=== PATIENT | female | born 1990 ===

== ENCOUNTER 2018-10-19 06:05 | Day surgery (SDC) | payer MEDICARE, MEDICAID ==
[2018-10-13 12:02] VITALS: BMI 39.5
[2018-10-19] MEDS ORDERED: cefTRIAXone 1 gm 1 GM/100 ML BAG IVPB ONE (07:37)
[2018-10-19] MEDS ORDERED: Iohexol 240 (50 ml) ONE (07:37)
[2018-10-19] MEDS ORDERED: Midazolam 2 MG/2 ML VIAL ONE (08:29)
[2018-10-19] MEDS ORDERED: Propofol 10 mg/ml Inj (20 ML) ONE (08:29)
[2018-10-19 08:38] LABS: CALCIUM 8.8 mg/dl (8.6-10.4)
[2018-10-19] MEDS ORDERED: Neostigmine Methylsulfate 3mg/3ml Syringe IV ONE (09:34)
--- NOTE | 2018-10-19 09:47 | PCM.SURG1 ---
Surgeon's Initial Post Op Note - Surgeon's Notes Surgeon: Isabel Zapata [employer] Compliance Analyst: none Type of Anesthesia: General Endo Pre-Operative Diagnosis: R renal calculi Operative Findings: same Post-Operative Diagnosis: same Operation Performed: cysto. R uretero-renoscopy. Laser renolithotripsy. RTG Pyelogram. stone basketing. stent insertion Specimen/Specimens Removed: urine. stone Estimated Blood Loss: EBL {In ML}: 0 Blood Products Given: N/A Post-Op Condition: Good Date of Surgery/Procedure: 10/19/18 Time of Surgery/Procedure: 09:35
[2018-10-19] MEDS: HYDROmorphone 0.5 mg/0.5 ml ISec IVP PRN ×2 (09:54→10:14)
[2018-10-19 11:22] VITALS: RESP 18; O2SAT 96
[2018-10-19 11:51] VITALS: BP 104/62; PULSE 88; TEMP 97.7
--- NOTE | 2018-10-19 12:10 | RAD ---
Date of service: 10/19/2018 PROCEDURE: Intraoperative Fluoroscopy. HISTORY: UROLITHIASIS FINDINGS: Fluoroscopic assistance was provided for retrograde study and stent placement. Please refer to the operative report from Dr. LU CROWS [place]. Total fluoroscopic time (continuous mode) utilized during the procedure 129.0 seconds. Dose report: DLP 3.62 (mGy/m2)
--- NOTE | 2018-10-19 20:27 | OP ---
PROCEDURE DATE: 10/19/2018 PREOPERATIVE DIAGNOSIS: Right renal calculi. POSTOPERATIVE DIAGNOSIS: Right renal calculi. PROCEDURE: Cystoscopy. Right ureteral renoscopy. Laser renal lithotripsy. Right renal stone basketing. Right retrograde pyelogram. Insertion of right ureteral stent. OPERATING SURGEON: Marizol Zapata MD. DESCRIPTION OF PROCEDURE: Procedure as follows. The patient was placed in lithotomy position. General anesthesia had been administered via the tracheal tube. Perioperative antibiotics were administered. The genitalia prepped and draped in a sterile fashion. A 22-Hungarian cystoscope sheath was introduced with obturator. The scant amount of urine within the bladder was sent for bacteriologic examination. The bladder was inspected. The right ureteral stent was identified. The right ureteral orifice was identified. A 0.035-inch guidewire was inserted into the right ureteral orifice and passed up to the level of kidney. A second guidewire was inserted as well. The ureteral stent was grasped using grasping forceps and removed intact. Procedure was performed under fluoroscopic control as well as video endoscopic control. A 7-Hungarian flexible ureteral renoscope was passed over the working wire under fluoroscopic control as well as video endoscopic control up to the level of the kidney. The guidewire was removed. The multiple calyces in the kidney were inspected. The upper pole was first inspected. There were noted to be multiple stones. Some stones were small. Once stone was larger and was fragmented using the holmium laser and the 20-micron fiber. Energy was delivered in the dusting mode. There was excellent fragmentation. Residual small fragments were basketed using the zero tip nitinol basket. First uretero-renoscopy was performed. There were some tiny sand-like particles within the middle pole. These were irrigated free and were too small to basket. Iodinated contrast dye was instilled to delineate the collecting system anatomy. Thereafter, further inspection of the middle pole calyces as well as lower pole calyces were performed. There were a few tiny fragments within the lower pole as well. Attempted basketing was performed. However, these were too small to basket. These were irrigated free. The ureteroscope was removed under direct vision. There was no ureteral lesion or obstruction or mucosal trauma or stone. A 6-Hungarian multilength stent was inserted over the remaining guidewire. Proper stent position was confirmed with fluoroscopy and endoscopy. A distal suture was left to exit from the distal end of the stent per urethra. The cystoscopy confirmed these findings. The bladder was drained. Cystoscope sheath removed. The patient was returned to supine position. The patient tolerated the procedure without complication. Marizol Zapata MD
== END 2018-10-19 11:50 | disposition home or self-care (01) ==
LOC: MERGE 06:05 → C.SDS 06:05
PROVIDERS: ATTEND Urology
DX: N20.0 Calculus of kidney (principal); E11.9 Type 2 diabetes mellitus without complications; Z98.84 Bariatric surgery status
CPT/HCPCS: 36415; 52356; 80048; 82365; 82948; 87086; 87181; 87206; 88300; C1725; C1758; C1769; J0696; J1170; Q9966

== ENCOUNTER 2018-10-23 10:03 | Inpatient (IN) | payer MEDICARE, MEDICAID ==
[2018-10-23 10:13] VITALS: BMI 30.2
[2018-10-23] MEDS ORDERED: Piperacillin/Tazobact 3.375 gm 100 ML IV STA (10:54)
[2018-10-23] MEDS ORDERED: Piperacillin/Tazobact 3.375 gm 100 ML IVPB ONE (11:35)
--- NOTE | 2018-10-23 12:06 | C.PDOC ---
History Of Present Illness 28 year old female with PMHx of kidney stones, diabetes, and renal failure on dialysis referred to the ED by Dr. Isabel Zapata for evaluation and possible admission. Patient complains of pelvic and flank pain, fever, and nausea status post kidney stent placement on 10/19. As per Dr. Isabel Zapata, urine culture growth show resistance to most of PO medications. Patient goes to dialysis Friday, Friday, and Friday - completed dialysis today. Manager [place]: Dr. Barboza Time Seen by Provider: 10/23/18 10:40 Chief Complaint (Nursing): Abdominal Pain History Per: Patient History/Exam Limitations: no limitations Onset/Duration Of Symptoms: Days Current Symptoms Are (Timing): Still Present Reports Recently: Treated By A Physician Past Medical History Reviewed: Historical Data, Nursing Documentation, Vital Signs Vital Signs: Last Vital Signs Temp 98.5 F 10/23/18 10:22 Pulse 88 10/23/18 10:22 Resp 18 10/23/18 10:22 BP 116/84 10/23/18 10:22 Pulse Ox 95 10/23/18 10:22 - Medical History PMH: Anemia, Diabetes, Fractures (RIGHT FEMUR), HTN, Hypercholesterolemia, Peripheral Edema (not at present), Chronic Kidney Disease Surgical History: Tonsillectomy - [facility] Procedures OTHER ENDOSCOPY OF SM INTEST (03/11/14) Family History: States: No Known Family Hx - Social History Hx Tobacco Use: No Hx Alcohol Use: No Hx Substance Use: No - Immunization History Hx Tetanus Toxoid Vaccination: No Hx Influenza Vaccination: Yes Hx Pneumococcal Vaccination: Yes Review Of Systems Except As Marked, All Systems Reviewed And Found Negative. Constitutional: Positive for: Fever Gastrointestinal: Positive for: Nausea. Negative for: Vomiting, Abdominal Pain, Diarrhea Genitourinary: Negative for: Dysuria, Hematuria, Vaginal Bleeding Physical Exam - Physical Exam Appears: Non-toxic, No Acute Distress Skin: Warm, Dry, No Rash Head: Normacephalic Eye(s): bilateral: Normal Inspection Nose: Normal Oral Mucosa: Moist Neck: Supple Chest: Symmetrical Cardiovascular: Rhythm Regular Respiratory: Normal Breath Sounds, No Rales, No Rhonchi, No Wheezing Neurological/Psych: Oriented x3, Normal Speech Gait: Steady ED Course And Treatment - Laboratory Results Result Diagrams: 10/23/18 12:31 10/23/18 12:31 O2 Sat by Pulse Oximetry: 95 (RA) Pulse Ox Interpretation: Normal Progress Note: Blood and urine collected and sent to the lab for analysis. Blood and urine cultures obtained. Spoke with PMD Dr. Stapleton who requested patient to be admitted under Dr. Myles Gilliam's service. Spoke with Dr. Myles Gilliam. Accepts patient. Disposition - Disposition Disposition: HOSPITALIZED Disposition Time: 13:13 Condition: FAIR - Clinical Impression Clinical Impression: UTI due to extended-spectrum beta lactamase (ESBL) producing Escherichia coli, ESRD (end stage renal disease) on dialysis - PA / CERTIFIED PROSTHETIST/ORTHOTIST / Resident Statement MD/DO has reviewed & agrees with the documentation as recorded. - Scribe Statement The provider has reviewed the documentation as recorded by the Scribe Chante Lyon All medical record entries made by the Scribe were at my direction and pe rsonally dictated by me. I have reviewed the chart and agree that the record accurately reflects my personal performance of the history, physical exam, medical decision making, and the department course for this patient. I have also personally directed, reviewed, and agree with the discharge instructions and disposition. Decision To Admit - Pt Status Changed To: Hospital Disposition Of: Inpatient - Admit Certification Admit to Inpatient:: After my assessment, the patient will require hospitalization for at least two midnights. This is because of the severity of symptoms shown, intensity of services needed, and/or the medical risk in this patient being treated as an outpatient. - InPatient: Physician Admission Certification: I certify that this patient requires 2 or more midnights of care for the following reason:: needs IV antoibiotics - . Bed Request Type: Regular Admitting Physician: Slava Gilliam Patient Diagnosis: UTI due to extended-spectrum beta lactamase (ESBL) producing Escherichia coli, ESRD (end stage renal disease) on dialysis
[2018-10-23 12:35] LABS: BASO # 0.1 K/uL (0.0-0.2); BASO % 0.9 % (0.0-2.0); EOS # 0.1 K/uL (0.0-0.7); EOS % 0.5 % (0.0-4.0); HEMOGLOBIN 10.6 g/dL (11.0-16.0); LYMPH # 0.9 K/uL (1.0-4.3); LYMPH % 8.6 % (20.0-40.0); MEAN CELL VOLUME 89.1 fL (81.0-99.0); MEAN CORPUSCULAR HEMOGLOBIN 28.3 pg (27.0-31.0); MEAN CORPUSCULAR HGB CONC 31.8 g/dL (33.0-37.0); MEAN PLATELET VOLUME 10.6 fL (7.2-11.7); MONO # 1.1 K/uL (0.0-0.8); MONO % 10.1 % (0.0-10.0); NEUT # 8.8 K/uL (1.8-7.0); NEUT % 79.9 % (50.0-75.0); NRBC % 0.1 % (0.0-2.0); PLATELET COUNT 234 K/uL (130-400); RBC 3.75 Mil/uL (3.80-5.20); RED CELL DISTRIBUTION WIDTH 16.3 % (11.5-14.5)
[2018-10-23 12:47] LABS: ALBUMIN 4.2 g/dL (3.5-5.0); CALCIUM 7.9 mg/dl (8.6-10.4)
[2018-10-23 12:54] LABS: BANDS 3 % (0-2); LYMPHOCYTE 8 % (20-40); MONOCYTE 10 % (0-10); NEUTROPHIL 79 % (50-75); PLATELET ESTIMATE NORMAL (NORMAL); TOTAL CELLS COUNTED 100
[2018-10-23 12:55] LABS: ANISOCYTOSIS SLIGHT; BURR CELLS MODERATE
[2018-10-23] MEDS: (Novolog) Insulin Aspart, Recombinant 100 u/ml 10 ml vial SC SCH (17:48)
[2018-10-23] MEDS: (Novolin R) Insulin Human Regular 100 units/ml vial SC SCH ×2 (17:49→21:16)
--- NOTE | 2018-10-23 18:38 | CP.PCM.CON ---
History of Present Illness - History of Present Illness History of Present Illness: INFECTIOUS DISEASE CONSULT; REASON FOR CONSULT: +ESBL ECOLI URINE S/P STENT INSERTION/ KIDNEY STONES HPI; 28 year old female with PMHx of kidney stones, diabetes, and renal failure on d ialysis referred to the ED by Dr. Isabel Zapata for evaluation and possible admission. Patient complains of pelvic and flank pain, fever, and nausea status post kidney stent placement on 10/19. As per Dr. Isabel Zapata, urine culture growth show resistance to most of PO medications. Patient goes to dialysis Friday, Friday, and Friday - completed dialysis today. INFECTIOUS DISEASE CONSULTATION REQUESTED FOR MULTIDRUG RESISTANT+VE ESBL E. COLI. PT S/P RECENT RIGHT URETERAL RENOSCOPY, LASER GRABIEL-LITHOTRIPSY, STONE BASKETING/STENT INSERTION ON 10/19/18. PMH: Anemia, Diabetes, Fractures (RIGHT FEMUR), HTN, Hypercholesterolemia, Peripheral Edema (not at present), Chronic Kidney Disease Surgical History: Tonsillectomy,GASTRIC SLEEVE SURGERY, LT.BKA - [facility] Procedures OTHER ENDOSCOPY OF SM INTEST (03/11/14) Family History: States: No Known Family Hx - Social History Hx Tobacco Use: No Hx Alcohol Use: No Hx Substance Use: No - Immunization History Hx Tetanus Toxoid Vaccination: No Hx Influenza Vaccination: Yes Hx Pneumococcal Vaccination: Yes. ALLERGY; NKDA. Review of Systems - Review of Systems All systems: reviewed and no additional remarkable complaints except - Constitutional Constitutional: Fever - Gastrointestinal Gastrointestinal: Nausea. absent: Vomiting - Genitourinary Genitourinary: absent: Dysuria, Hematuria - Reproductive: Female Reproductive:Female: absent: Abnormal Vaginal Bleeding, Vaginal Discharge Past Patient History - Past Medical History & Family History Past Medical History?: Yes - Past Social History Smoking Status: Never Smoked - CARDIAC Hx Cardiac Disorders: Yes Hx Hypercholesterolemia: Yes Hx Hypertension: Yes Hx Peripheral Edema: Yes (not at present) - PULMONARY Hx Respiratory Disorders: No - NEUROLOGICAL Hx Neurological Disorder: No - HEENT Hx HEENT Problems: No - RENAL Hx Chronic Kidney Disease: Yes Hx Dialysis: Yes Type of Dialysis Access: Left AV Fistula Date of Last Dialysis Treatment: 10/23/18 - ENDOCRINE/METABOLIC Hx Endocrine Disorders: Yes Hx Diabetes Mellitus Type 2: Yes - HEMATOLOGICAL/ONCOLOGICAL Hx Blood Disorders: Yes Hx Anemia: Yes - INTEGUMENTARY Hx Dermatological Problems: No - MUSCULOSKELETAL/RHEUMATOLOGICAL Hx Musculoskeletal Disorders: Yes Hx Fractures: Yes (RIGHT FEMUR) Other/Comment: left BKA - GASTROINTESTINAL Hx Gastrointestinal Disorders: Yes Other/Comment: HX: GASTRIC SLEEVE - GENITOURINARY/GYNECOLOGICAL Hx Genitourinary Disorders: Yes Hx Urinary Tract Infection: Yes - PSYCHIATRIC Hx Substance Use: No - SURGICAL HISTORY Hx Surgeries: Yes Hx Amputation: Yes (left BKA) Hx Gastric Bypass Surgery: Yes (gastric sleeve) Hx Tonsillectomy: Yes - ANESTHESIA Hx Anesthesia: Yes Hx Anesthesia Reactions: No Hx Malignant Hyperthermia: No Has any member of the family had a problem w/ anesthesia?: No Meds Allergies/Adverse Reactions: Allergies Allergy/AdvReac Type Severity Reaction Status Date / Time No Known Allergies Allergy Verified 10/23/18 10:26 - Medications Medications: Current Medications Calcitriol (Rocaltrol) 0.25 mcg PO DAILY [facility] Calcium Acetate (Phoslo) 2,001 mg PO TIDCC [facility] Last Admin: 10/23/18 17:48 Dose: 2,001 mg Carvedilol (Coreg) 12.5 mg PO Q12 [facility] Last Admin: 10/23/18 15:29 Dose: Not Given Ferrous Sulfate (Feosol) 325 mg PO DAILY [facility] Gabapentin (Neurontin) 300 mg PO BID [facility] Last Admin: 10/23/18 17:48 Dose: 300 mg Heparin Sodium (Porcine) (Heparin) 5,000 units SC Q8 [facility] Piperacillin Sod/Tazobactam (Sod 2.25 gm/ Sodium Chloride) 100 mls @ 200 mls/hr IVPB Q8H [facility]; Protocol Insulin Aspart (Novolog) 10 unit SC TID [facility] Last Admin: 10/23/18 17:48 Dose: 10 units Insulin Detemir (Levemir) 10 unit SC HS [facility] Insulin Human Regular (Novolin R) 0 unit SC ACHS [facility]; Protocol Last Admin: 10/23/18 17:49 Dose: 3 units Losartan Potassium (Cozaar) 50 mg PO DAILY [facility] Oxycodone/Acetaminophen (Percocet 5/325 Mg Tab) 1 tab PO Q4H PRN PRN Reason: Pain, moderate (4-7) Stop: 10/26/18 18:02 Rosuvastatin Calcium (Crestor) 20 mg PO HS [facility] Sennosides (Senokot Tab) 17.2 mg PO DAILY PRN PRN Reason: Constipation Tramadol HCl (Ultram) 50 mg PO BID PRN PRN Reason: Pain, moderate (4-7) Last Admin: 10/23/18 17:56 Dose: 50 mg Physical Exam - Constitutional Appears: No Acute Distress - Head Exam Head Exam: NORMAL INSPECTION - Eye Exam Eye Exam: EOMI, PERRL. absent: Scleral icterus - ENT Exam ENT Exam: Normal Oropharynx - Neck Exam Neck exam: Positive for: Normal Inspection - Respiratory Exam Respiratory Exam: Clear to Auscultation Bilateral - Cardiovascular Exam Cardiovascular Exam: Tachycardia, REGULAR RHYTHM, +S1, +S2 - GI/Abdominal Exam GI & Abdominal Exam: Normal Bowel Sounds, Soft. absent: Organomegaly - Extremities Exam Extremities exam: Positive for: pedal pulses present. Negative for: calf tenderness, pedal edema - Neurological Exam Neurological exam: Alert, CN II-XII Intact, Oriented x3, Reflexes Normal - Psychiatric Exam Psychiatric exam: Normal Mood - Skin Skin Exam: Normal Color, Warm Results - Vital Signs Recent Vital Signs: Last Vital Signs Temp 98.5 F 10/23/18 17:01 Pulse 86 10/23/18 17:01 Resp 18 10/23/18 17:01 BP 149/83 10/23/18 17:01 Pulse Ox 95 10/23/18 17:24 - Labs Result Diagrams: 10/23/18 12:31 10/23/18 12:31 Labs: Laboratory Results - last 24 hr 10/23/18 10/23/18 10/23/18 12:31 12:31 13:16 WBC 11.0 H D RBC 3.75 L Hgb 10.6 L Hct 33.4 L MCV 89.1 MCH 28.3 MCHC 31.8 L RDW 16.3 H Plt Count 234 MPV 10.6 Neut % (Auto) 79.9 H Lymph % (Auto) 8.6 L [place] % (Auto) 10.1 H Eos % (Auto) 0.5 Baso % (Auto) 0.9 Neut # (Auto) 8.8 H Lymph # (Auto) 0.9 L [place] # (Auto) 1.1 H Eos # (Auto) 0.1 Baso # (Auto) 0.1 Neutrophils % (Manual) 79 H Band Neutrophils % 3 H Lymphocytes % (Manual) 8 L Monocytes % (Manual) 10 Platelet Estimate Normal Anisocytosis (manual) Slight [place] Cells Moderate Sodium 138 Potassium 4.1 Chloride 92 L Carbon Dioxide 32 H Anion Gap 18 BUN 23 H Creatinine 3.9 H Est GFR ( Amer) 17 Est GFR (Non-Af Amer) 14 POC Glucose (mg/dL) Random Glucose 72 Calcium 7.9 L Total Bilirubin 0.5 AST 15 ALT 12 Alkaline Phosphatase 123 Total Protein 8.3 Albumin 4.2 Globulin 4.1 H Albumin/Globulin Ratio 1.0 Urine HCG, Qual Negative 10/23/18 10/23/18 14:24 17:02 WBC RBC Hgb Hct MCV MCH MCHC RDW Plt Count MPV Neut % (Auto) Lymph % (Auto) [place] % (Auto) Eos % (Auto) Baso % (Auto) Neut # (Auto) Lymph # (Auto) [place] # (Auto) Eos # (Auto) Baso # (Auto) Neutrophils % (Manual) Band Neutrophils % Lymphocytes % (Manual) Monocytes % (Manual) Platelet Estimate Anisocytosis (manual) [place] Cells Sodium Potassium Chloride Carbon Dioxide Anion Gap BUN Creatinine Est GFR ( Amer) Est GFR (Non-Af Amer) POC Glucose (mg/dL) 131 H 204 H Random Glucose Calcium Total Bilirubin AST ALT Alkaline Phosphatase Total Protein Albumin Globulin Albumin/Globulin Ratio Urine HCG, Qual Assessment & Plan (1) UTI due to extended-spectrum beta lactamase (ESBL) producing Escherichia coli Status: Acute (2) ESRD (end stage renal disease) on dialysis Assessment and Plan: PATIENT ON HEMODIALYSIS MWF. LT. AV FISTULA. Status: Acute (3) Diabetes Status: Acute - Assessment and Plan (Free Text) Plan: PLAN. PANCULTURE. UA,URINE CULTURE. DC IV zOSYN. START IV MERREM 500 MG EVERY 12 HOURLY 10/23/18. ADD iv AMIKACIN 500 MG MWF STARTING TODAY WITH TOTAL OF 3 DOSES. FOLLOW-UP CULTURES TO ADJUST ANTIBIOTICS. CONTACT PRECAUTIONS. EVALUATION.
[2018-10-23] MEDS: Meropenem 500 MG in Sodium Chloride 0.9% 100 ML IVPB SCH (19:01)
[2018-10-23] MEDS ORDERED: Piperacillin/Tazobact 2.25 GM in Sodium Chloride 100 ML IVPB SCH (20:00)
[2018-10-23] MEDS: Insulin Detemir 100 units/ml Vial (Levemir) SC SCH (21:06)
--- NOTE | 2018-10-23 21:53 | CP.PCM.HP ---
Past Patient History - Past Medical History & Family History Past Medical History?: Yes - Past Social History Smoking Status: Never Smoked - CARDIAC Hx Cardiac Disorders: Yes Hx Hypercholesterolemia: Yes Hx Hypertension: Yes Hx Peripheral Edema: Yes (not at present) - PULMONARY Hx Respiratory Disorders: No - NEUROLOGICAL Hx Neurological Disorder: No - HEENT Hx HEENT Problems: No - RENAL Hx Chronic Kidney Disease: Yes Hx Dialysis: Yes Type of Dialysis Access: Left AV Fistula Date of Last Dialysis Treatment: 10/23/18 - ENDOCRINE/METABOLIC Hx Endocrine Disorders: Yes Hx Diabetes Mellitus Type 2: Yes - HEMATOLOGICAL/ONCOLOGICAL Hx Blood Disorders: Yes Hx Anemia: Yes - INTEGUMENTARY Hx Dermatological Problems: No - MUSCULOSKELETAL/RHEUMATOLOGICAL Hx Musculoskeletal Disorders: Yes Hx Fractures: Yes (RIGHT FEMUR) Other/Comment: left BKA - GASTROINTESTINAL Hx Gastrointestinal Disorders: Yes Other/Comment: HX: GASTRIC SLEEVE - GENITOURINARY/GYNECOLOGICAL Hx Genitourinary Disorders: Yes Hx Urinary Tract Infection: Yes - PSYCHIATRIC Hx Substance Use: No - SURGICAL HISTORY Hx Surgeries: Yes Hx Amputation: Yes (left BKA) Hx Gastric Bypass Surgery: Yes (gastric sleeve) Hx Tonsillectomy: Yes - ANESTHESIA Hx Anesthesia: Yes Hx Anesthesia Reactions: No Hx Malignant Hyperthermia: No Has any member of the family had a problem w/ anesthesia?: No Meds Allergies/Adverse Reactions: Allergies Allergy/AdvReac Type Severity Reaction Status Date / Time No Known Allergies Allergy Verified 10/23/18 10:26 Results - Vital Signs Recent Vital Signs: Last Vital Signs Temp 98.5 F 10/23/18 17:01 Pulse 86 10/23/18 17:01 Resp 18 10/23/18 17:01 BP 137/86 10/23/18 21:06 Pulse Ox 95 10/23/18 17:24 - Labs Result Diagrams: 10/23/18 12:31 10/23/18 12:31 Labs: Laboratory Results - last 24 hr 10/23/18 10/23/18 10/23/18 12:31 12:31 13:16 WBC 11.0 H D RBC 3.75 L Hgb 10.6 L Hct 33.4 L MCV 89.1 MCH 28.3 MCHC 31.8 L RDW 16.3 H Plt Count 234 MPV 10.6 Neut % (Auto) 79.9 H Lymph % (Auto) 8.6 L [place] % (Auto) 10.1 H Eos % (Auto) 0.5 Baso % (Auto) 0.9 Neut # (Auto) 8.8 H Lymph # (Auto) 0.9 L [place] # (Auto) 1.1 H Eos # (Auto) 0.1 Baso # (Auto) 0.1 Neutrophils % (Manual) 79 H Band Neutrophils % 3 H Lymphocytes % (Manual) 8 L Monocytes % (Manual) 10 Platelet Estimate Normal Anisocytosis (manual) Slight [place] Cells Moderate Sodium 138 Potassium 4.1 Chloride 92 L Carbon Dioxide 32 H Anion Gap 18 BUN 23 H Creatinine 3.9 H Est GFR ( Amer) 17 Est GFR (Non-Af Amer) 14 POC Glucose (mg/dL) Random Glucose 72 Calcium 7.9 L Total Bilirubin 0.5 AST 15 ALT 12 Alkaline Phosphatase 123 Total Protein 8.3 Albumin 4.2 Globulin 4.1 H Albumin/Globulin Ratio 1.0 Urine HCG, Qual Negative 10/23/18 10/23/18 10/23/18 14:24 17:02 20:50 WBC RBC Hgb Hct MCV MCH MCHC RDW Plt Count MPV Neut % (Auto) Lymph % (Auto) [place] % (Auto) Eos % (Auto) Baso % (Auto) Neut # (Auto) Lymph # (Auto) [place] # (Auto) Eos # (Auto) Baso # (Auto) Neutrophils % (Manual) Band Neutrophils % Lymphocytes % (Manual) Monocytes % (Manual) Platelet Estimate Anisocytosis (manual) [place] Cells Sodium Potassium Chloride Carbon Dioxide Anion Gap BUN Creatinine Est GFR ( Amer) Est GFR (Non-Af Amer) POC Glucose (mg/dL) 131 H 204 H 237 H Random Glucose Calcium Total Bilirubin AST ALT Alkaline Phosphatase Total Protein Albumin Globulin Albumin/Globulin Ratio Urine HCG, Qual
--- NOTE | 2018-10-24 03:28 | HP ---
CHIEF COMPLAINT: Fever. HISTORY OF PRESENT ILLNESS: This is a 28-year-old female who has diabetes for a long time. She has a history of left below-knee amputation, hypertension, hyperlipidemia. She is on insulin. She is compliant with her diet, medication, and followup. She was diagnosed with kidney stone, and she underwent cystoscopy and stent placement into her left kidney, and then she developed fever, chills, rigors, nausea, vomiting, pelvic, and flank pain. The stent was placed on 10/19/2018, and according to Dr. Zapata, her urine cultures grown are resistant to oral antibiotics, and the patient goes for dialysis with Dr. Barboza on Friday, Friday, and Friday. The patient has nausea, generalized weakness, frequency of urination, abdominal discomfort. She denies any history of head injury, trauma, fall, or loss of consciousness. She denies any seizure-like activity. She has tingling and numbness in the right leg. She has joint pain, hip pain. She has prior right hip surgery. She denies any history of skin rash. She denies any history of sneezing, itchy eyes, or itchy nose. PAST MEDICAL HISTORY: Right total hip replacement; hypertension; hyperlipidemia; left below-knee amputation; CKD, on hemodialysis. SOCIAL HISTORY: Nonsmoker, non-EtOH user. CURRENT MEDICATIONS: At home are, she is on Tramadol, Senna, Cozaar, Humalog, Levemir, ferrous sulphate, Coreg, PhosLo, Calcitrol, Lipitor, Percocet, Zantac, NovoLog, folic acid. PHYSICAL EXAMINATION: GENERAL: This is a young female, looks chronically sick, in minimal distress. VITAL SIGNS: Blood pressure 149/83, pulse 86, respiratory rate 18, temperature 98.5. SKIN: Flushed. No bruises, no purpura, no petechiae. HEENT: Atraumatic and normocephalic. Negative pallor. Negative jaundice. Extraocular movements are intact. NECK: Supple. No JVD. No lymph nodes. No thyromegaly. No carotid bruits. CHEST WALL: Bilateral symmetrical expansion. LUNGS: Clear. No rales. No rhonchi. CARDIOVASCULAR SYSTEM: S1 and S2, regular. No heave. No thrill. ABDOMEN: Soft and nontender. Bowel sounds are positive. RECTAL: Refused. PELVIC: Refused. EXTREMITIES: Left BKA. Stump is clean, and she has prosthetic leg on the left side. CENTRAL NERVOUS SYSTEM: Awake, alert, and oriented x3. Cranial nerves II through XII are normal. Power 5/5 x4. Plantars are downgoing. ASSESSMENT: 1. Urinary tract infection, rule out septicemia, post stent placement urinary tract infection. 2. Chronic kidney disease, on hemodialysis. 3. Type 2 diabetes. 4. Hypertension. PLAN: Admit. Detailed orders are written. Seen and examined. Slava Gilliam MD
[2018-10-24] MEDS: (Novolin R) Insulin Human Regular 100 units/ml vial SC SCH ×4 (08:30→21:37)
[2018-10-24] MEDS: Meropenem 500 MG in Sodium Chloride 0.9% 100 ML IVPB SCH ×2 (08:39→19:21)
[2018-10-24] MEDS: (Novolog) Insulin Aspart, Recombinant 100 u/ml 10 ml vial SC SCH ×2 (09:25→13:23)
[2018-10-24 10:34] LABS: SQUAMOUS EPITHIAL 8 /hpf (0-5); URINE BACTERIA MOD (<OCC); URINE BILIRUBIN NEGATIVE (NEGATIVE); URINE BLOOD 1+ (NEGATIVE); URINE CLARITY Turbid (Clear); URINE COLOR Yellow (YELLOW); URINE GLUCOSE (UA) 3+ mg/dL (Normal); URINE LEUKOCYTE ESTERASE 3+ Leu/uL (Negative); URINE PROTEIN 2+ mg/dL (NEGATIVE); URINE UROBILINOGEN NORMAL mg/dL (0.2-1.0); WBC CLUMPS MANY /hpf
--- NOTE | 2018-10-24 14:18 | CP.PCM.CON ---
History of Present Illness - History of Present Illness History of Present Illness: RENAL CONSULT 28 yo F w/ pmh of ESRD, HTN, kidney stones, obesity that prestned w/ UTI. She recently had stones and is s/p a stent placement in R ureter w/ Dr. Zapata. SHe reportedly had fevers shortly after the procedure and her urine culture reportedly was resistant to many po abx so was admitted for further evaluation. She states fevers improved today. She denies n/v. She is feeling mildly improved. ROS: a full detailed ros is negative except as in my hpi pmh: as below, ESRD MWF famhx: no esrd sochx: as below - no active smoke etoh or ivdu meds: as below all: nkda labs and imaging reviewed pe: VS as below gen: nad sclera anicteric op: Clear neck: supple no thyromegaly cv: +S1+s2 no rub lungs: cta b/l abd: soft nt nd no organomegaly obese psych: nml affect skin: No rash neuro: A+Ox3 no focal defecity imp: esrd / diabetic kidney disease/ anemia of renal disease/ hypertensive kidney disease/ UTI/ secondary hyperparathyroidism/ hyperphosphatemia plan: HD MWF resume home bp meds on abx - dose for ESRD continue calcitriol continue binders, check phos level Past Patient History - Past Medical History & Family History Past Medical History?: Yes - Past Social History Smoking Status: Never Smoked - CARDIAC Hx Cardiac Disorders: Yes Hx Hypercholesterolemia: Yes Hx Hypertension: Yes Hx Peripheral Edema: Yes (not at present) - PULMONARY Hx Respiratory Disorders: No - NEUROLOGICAL Hx Neurological Disorder: No - HEENT Hx HEENT Problems: No - RENAL Hx Chronic Kidney Disease: Yes Hx Dialysis: Yes Type of Dialysis Access: Left AV Fistula Date of Last Dialysis Treatment: 10/23/18 - ENDOCRINE/METABOLIC Hx Endocrine Disorders: Yes Hx Diabetes Mellitus Type 2: Yes - HEMATOLOGICAL/ONCOLOGICAL Hx Blood Disorders: Yes Hx Anemia: Yes - INTEGUMENTARY Hx Dermatological Problems: No - MUSCULOSKELETAL/RHEUMATOLOGICAL Hx Musculoskeletal Disorders: Yes Hx Fractures: Yes (RIGHT FEMUR) Other/Comment: left BKA - GASTROINTESTINAL Hx Gastrointestinal Disorders: Yes Other/Comment: HX: GASTRIC SLEEVE - GENITOURINARY/GYNECOLOGICAL Hx Genitourinary Disorders: Yes Hx Urinary Tract Infection: Yes - PSYCHIATRIC Hx Substance Use: No - SURGICAL HISTORY Hx Surgeries: Yes Hx Amputation: Yes (left BKA) Hx Gastric Bypass Surgery: Yes (gastric sleeve) Hx Tonsillectomy: Yes - ANESTHESIA Hx Anesthesia: Yes Hx Anesthesia Reactions: No Hx Malignant Hyperthermia: No Has any member of the family had a problem w/ anesthesia?: No Meds Allergies/Adverse Reactions: Allergies Allergy/AdvReac Type Severity Reaction Status Date / Time No Known Allergies Allergy Verified 10/23/18 10:26 - Medications Medications: Current Medications Calcitriol (Rocaltrol) 0.25 mcg PO DAILY [facility] Last Admin: 10/24/18 09:25 Dose: 0.25 mcg Calcium Acetate (Phoslo) 2,001 mg PO TIDCC [facility] Last Admin: 10/24/18 13:00 Dose: 2,001 mg Carvedilol (Coreg) 12.5 mg PO Q12 [facility] Last Admin: 10/24/18 09:25 Dose: 12.5 mg Diphenhydramine HCl (Benadryl) 25 mg PO Q4H PRN PRN Reason: Itching / Pruritus Last Admin: 10/24/18 08:45 Dose: 25 mg Ferrous Sulfate (Feosol) 325 mg PO DAILY [facility] Last Admin: 10/24/18 09:25 Dose: 325 mg Gabapentin (Neurontin) 300 mg PO BID [facility] Last Admin: 10/24/18 09:25 Dose: 300 mg Heparin Sodium (Porcine) (Heparin) 5,000 units SC Q8 [facility] Last Admin: 10/24/18 13:26 Dose: 5,000 units Meropenem 500 mg/ Sodium (Chloride) 100 mls @ 100 mls/hr IVPB Q12H [facility]; Protocol Last Admin: 10/24/18 08:39 Dose: 100 mls/hr Insulin Aspart (Novolog) 10 unit SC TID [facility] Last Admin: 10/24/18 13:23 Dose: 10 units Insulin Detemir (Levemir) 10 unit SC HS [facility] Last Admin: 10/23/18 21:06 Dose: 10 units Insulin Human Regular (Novolin R) 0 unit SC ACHS [facility]; Protocol Last Admin: 10/24/18 12:17 Dose: 3 units Losartan Potassium (Cozaar) 50 mg PO DAILY [facility] Last Admin: 10/24/18 09:25 Dose: 50 mg Morphine Sulfate (Morphine) 2 mg IVP Q4 PRN PRN Reason: Pain, severe (8-10) Last Admin: 10/24/18 13:20 Dose: 2 mg Oxycodone/Acetaminophen (Percocet 5/325 Mg Tab) 1 tab PO Q4H PRN PRN Reason: Pain, moderate (4-7) Stop: 10/26/18 18:02 Rosuvastatin Calcium (Crestor) 20 mg PO HS [facility] Sennosides (Senokot Tab) 17.2 mg PO DAILY PRN PRN Reason: Constipation Tramadol HCl (Ultram) 50 mg PO BID PRN PRN Reason: Pain, moderate (4-7) Last Admin: 10/23/18 17:56 Dose: 50 mg Results - Vital Signs Recent Vital Signs: Last Vital Signs Temp 97.8 F 10/24/18 07:00 Pulse 95 H 10/24/18 09:24 Resp 18 10/24/18 07:00 BP 148/84 10/24/18 09:25 Pulse Ox 100 10/24/18 07:00 - Labs Result Diagrams: 10/23/18 12:31 10/23/18 12:31 Labs: Laboratory Results - last 24 hr 10/23/18 10/23/18 10/23/18 14:24 17:02 20:50 POC Glucose (mg/dL) 131 H 204 H 237 H Urine Color Urine Clarity Urine pH Ur Specific Willis Urine Protein Urine Glucose (UA) Urine Ketones Urine Blood Urine Nitrate Urine Bilirubin Urine Urobilinogen Ur Leukocyte Esterase Urine WBC (Auto) Urine RBC (Auto) Urine WBC Clumps (Auto) Ur Squamous Epith Cells Urine Bacteria 10/24/18 10/24/18 10/24/18 02:16 06:31 10:17 POC Glucose (mg/dL) 266 H 374 H Urine Color Yellow Urine Clarity Turbid Urine pH 5.0 Ur Specific Willis 1.010 Urine Protein 2+ H Urine Glucose (UA) 3+ H Urine Ketones Negative Urine Blood 1+ H Urine Nitrate Negative Urine Bilirubin Negative Urine Urobilinogen Normal Ur Leukocyte Esterase 3+ H Urine WBC (Auto) 3434 H Urine RBC (Auto) 8 H Urine WBC Clumps (Auto) Many H Ur Squamous Epith Cells 8 H Urine Bacteria Mod H 10/24/18 11:01 POC Glucose (mg/dL) 243 H Urine Color Urine Clarity Urine pH Ur Specific Willis Urine Protein Urine Glucose (UA) Urine Ketones Urine Blood Urine Nitrate Urine Bilirubin Urine Urobilinogen Ur Leukocyte Esterase Urine WBC (Auto) Urine RBC (Auto) Urine WBC Clumps (Auto) Ur Squamous Epith Cells Urine Bacteria
[2018-10-24] MEDS ORDERED: Glucagon Recombinant 1 mg Inj IM PRN (16:36)
[2018-10-24] MEDS ORDERED: Dextrose 50% SYRINGE Inj (50 ml) IVP PRN (16:36)
--- NOTE | 2018-10-24 20:04 | CP.PCM.PN ---
Subjective - Date & Time of Evaluation Date of Evaluation: 10/24/18 Time of Evaluation: 20:04 - Subjective Subjective: CHIEF COMPLAINTS TODAY : TEMP IMPROVED. VSS FEELING BETTER. DENIES DYSURIA/OR HEMATURIA ROS. HEENT : N. Resp : No cough, wheezing ,pleuritic CP ,or hemoptysis Cardio : No anginal CP, PND, orthopnea, palpitation GI : No abd.pain, n/v ,diarrhea or GI bleeding . [employer] BLASTING : No headache, vertigo, focal deficit. Musculoskel : No joint swelling , Derm : No rash Psych : Normal affect. Ext : No swelling ,calf pain LT AV SHUNT DANIELLE +VE BRUIT LT BKA PE. Pt. is alert awake in no distress. V.S As noted in the chart Head ,ear nose,throat and eyes : Normal. Neck : Supple with normal carotids. Lungs: Clear air entry. Heart : S1 & S2 normal with S4. No murmur. Abd : Soft non tender with normal bowel sounds. Neuro : Moves all ext. with no localized deficit. Ext : No edema with intact pulses.Non tender calves LT. BKA LAV -SHUNT +VE BRUIT Derm : No rashes or decubitus ulcer. LABS/RADIOLOGY: BLOOD CULTURES -VE X 24HRS. URINE CULTURE +VE GN RODS Objective - Vital Signs/Intake and Output Vital Signs (last 24 hours): Temp Pulse Resp BP Pulse Ox 97.8 F 94 H 18 123/85 98 10/24/18 15:00 10/24/18 15:00 10/24/18 15:00 10/24/18 15:00 10/24/18 15:00 - Medications Medications: Current Medications Calcitriol (Rocaltrol) 0.25 mcg PO DAILY [facility] Last Admin: 10/24/18 09:25 Dose: 0.25 mcg Calcium Acetate (Phoslo) 2,001 mg PO TIDCC [facility] Last Admin: 10/24/18 17:29 Dose: 2,001 mg Carvedilol (Coreg) 12.5 mg PO Q12 [facility] Last Admin: 10/24/18 09:25 Dose: 12.5 mg Dextrose (Dextrose 50% Inj) 0 ml IVP .STAT PRN; Protocol PRN Reason: Hypoglycemia Protocol Dextrose (Glutose 15) 0 gm PO .ONCE PRN; Protocol PRN Reason: Hypoglycemia Protocol Diphenhydramine HCl (Benadryl) 25 mg PO Q4H PRN PRN Reason: Itching / Pruritus Last Admin: 10/24/18 08:45 Dose: 25 mg Ferrous Sulfate (Feosol) 325 mg PO DAILY [facility] Last Admin: 10/24/18 09:25 Dose: 325 mg Gabapentin (Neurontin) 300 mg PO BID [facility] Last Admin: 10/24/18 17:29 Dose: 300 mg Glucagon (Glucagen Diagnostic Kit) 0 mg IM .STAT PRN; Protocol PRN Reason: Hypoglycemia Protocol Heparin Sodium (Porcine) (Heparin) 5,000 units SC Q8 [facility] Last Admin: 10/24/18 13:26 Dose: 5,000 units Meropenem 500 mg/ Sodium (Chloride) 100 mls @ 100 mls/hr IVPB Q12H [facility]; Protocol Last Admin: 10/24/18 19:21 Dose: 100 mls/hr Dextrose (Dextrose 5% In Water 1000 Ml) 1,000 mls @ 0 mls/hr IV .Q0M PRN; Protocol PRN Reason: Hypoglycemia Protocol Insulin Aspart (Novolog) 10 unit SC TID [facility] Last Admin: 10/24/18 13:23 Dose: 10 units Insulin Detemir (Levemir) 10 unit SC HS [facility] Last Admin: 10/23/18 21:06 Dose: 10 units Insulin Human Regular (Novolin R) 0 unit SC ACHS [facility]; Protocol Last Admin: 10/24/18 17:11 Dose: Not Given Losartan Potassium (Cozaar) 50 mg PO DAILY [facility] Last Admin: 10/24/18 09:25 Dose: 50 mg Morphine Sulfate (Morphine) 2 mg IVP Q4 PRN PRN Reason: Pain, severe (8-10) Last Admin: 10/24/18 17:28 Dose: 2 mg Oxycodone/Acetaminophen (Percocet 5/325 Mg Tab) 1 tab PO Q4H PRN PRN Reason: Pain, moderate (4-7) Stop: 10/26/18 18:02 Rosuvastatin Calcium (Crestor) 20 mg PO HS [facility] Sennosides (Senokot Tab) 17.2 mg PO DAILY PRN PRN Reason: Constipation Tramadol HCl (Ultram) 50 mg PO BID PRN PRN Reason: Pain, moderate (4-7) Last Admin: 10/23/18 17:56 Dose: 50 mg - Labs Labs: 12/28/18 12:31 10/23/18 12:31 Assessment and Plan (1) UTI due to extended-spectrum beta lactamase (ESBL) producing Escherichia coli Status: Acute (2) ESRD (end stage renal disease) on dialysis Status: Acute (3) Diabetes Status: Acute - Assessment and Plan (Free Text) Plan: CONTINUE IV MERREM 500 MG EVERY 12 HOURLY 10/23/18. ON iv AMIKACIN 500 MG MWF STARTING 10/23/18 WITH TOTAL OF 3 DOSES. FOLLOW-UP CULTURES TO ADJUST ANTIBIOTICS. CONTACT PRECAUTIONS. EVALUATION.
--- NOTE | 2018-10-24 21:22 | CP.PCM.PN ---
Subjective - Subjective Subjective: dictated Objective - Vital Signs/Intake and Output Vital Signs (last 24 hours): Temp Pulse Resp BP Pulse Ox 97.8 F 94 H 18 123/85 98 10/24/18 15:00 10/24/18 15:00 10/24/18 15:00 10/24/18 15:00 10/24/18 15:00 - Medications Medications: Current Medications Calcitriol (Rocaltrol) 0.25 mcg PO DAILY [facility] Last Admin: 10/24/18 09:25 Dose: 0.25 mcg Calcium Acetate (Phoslo) 2,001 mg PO TIDCC [facility] Last Admin: 10/24/18 17:29 Dose: 2,001 mg Carvedilol (Coreg) 12.5 mg PO Q12 [facility] Last Admin: 10/24/18 09:25 Dose: 12.5 mg Dextrose (Dextrose 50% Inj) 0 ml IVP .STAT PRN; Protocol PRN Reason: Hypoglycemia Protocol Dextrose (Glutose 15) 0 gm PO .ONCE PRN; Protocol PRN Reason: Hypoglycemia Protocol Diphenhydramine HCl (Benadryl) 25 mg PO Q4H PRN PRN Reason: Itching / Pruritus Last Admin: 10/24/18 08:45 Dose: 25 mg Ferrous Sulfate (Feosol) 325 mg PO DAILY [facility] Last Admin: 10/24/18 09:25 Dose: 325 mg Gabapentin (Neurontin) 300 mg PO BID [facility] Last Admin: 10/24/18 17:29 Dose: 300 mg Glucagon (Glucagen Diagnostic Kit) 0 mg IM .STAT PRN; Protocol PRN Reason: Hypoglycemia Protocol Heparin Sodium (Porcine) (Heparin) 5,000 units SC Q8 [facility] Last Admin: 10/24/18 13:26 Dose: 5,000 units Meropenem 500 mg/ Sodium (Chloride) 100 mls @ 100 mls/hr IVPB Q12H [facility]; Protocol Last Admin: 10/24/18 19:21 Dose: 100 mls/hr Dextrose (Dextrose 5% In Water 1000 Ml) 1,000 mls @ 0 mls/hr IV .Q0M PRN; Protocol PRN Reason: Hypoglycemia Protocol Insulin Aspart (Novolog) 10 unit SC TID [facility] Last Admin: 10/24/18 13:23 Dose: 10 units Insulin Detemir (Levemir) 10 unit SC HS [facility] Last Admin: 10/23/18 21:06 Dose: 10 units Insulin Human Regular (Novolin R) 0 unit SC ACHS [facility]; Protocol Last Admin: 10/24/18 17:11 Dose: Not Given Losartan Potassium (Cozaar) 50 mg PO DAILY [facility] Last Admin: 10/24/18 09:25 Dose: 50 mg Morphine Sulfate (Morphine) 2 mg IVP Q4 PRN PRN Reason: Pain, severe (8-10) Last Admin: 10/24/18 17:28 Dose: 2 mg Oxycodone/Acetaminophen (Percocet 5/325 Mg Tab) 1 tab PO Q4H PRN PRN Reason: Pain, moderate (4-7) Stop: 10/26/18 18:02 Rosuvastatin Calcium (Crestor) 20 mg PO HS [facility] Sennosides (Senokot Tab) 17.2 mg PO DAILY PRN PRN Reason: Constipation Tramadol HCl (Ultram) 50 mg PO BID PRN PRN Reason: Pain, moderate (4-7) Last Admin: 10/23/18 17:56 Dose: 50 mg - Labs Labs: 10/23/18 12:31 10/23/18 12:31
[2018-10-24] MEDS: Insulin Detemir 100 units/ml Vial (Levemir) SC SCH (21:47)
[2018-10-25] MEDS: Meropenem 500 MG in Sodium Chloride 0.9% 100 ML IVPB SCH ×2 (08:29→20:58)
[2018-10-25] MEDS: (Novolin R) Insulin Human Regular 100 units/ml vial SC SCH ×4 (08:30→22:20)
[2018-10-25] MEDS: Insulin Detemir 100 units/ml Vial (Levemir) SC SCH (22:19)
--- NOTE | 2018-10-26 01:08 | PN ---
DATE: 10/25/2018 SUBJECTIVE: The patient is afebrile. She is on IV Zosyn. Seen by ID. No nausea or vomiting. PHYSICAL EXAMINATION: VITAL SIGNS: Blood pressure 154/83, pulse 83, respiratory rate 18, temperature 97.7. LUNGS: Clear. CARDIOVASCULAR SYSTEM: S1 and S2 are regular. ABDOMEN: Soft. ASSESSMENT: 1. Urinary tract infection, rule out septicemia. Urine culture is positive for Escherichia coli which is sensitive to Zosyn. 2. Chronic kidney disease, on hemodialysis. 3. Hypertension. 4. Nephrolithiasis, status post stent. PLAN: Continue antibiotics. Post wound care. Contact isolation. Monitor the patient. Slava Gilliam MD
--- NOTE | 2018-10-26 01:36 | PN ---
DATE: 10/25/2018 SUBJECTIVE: The patient is afebrile. Feeling better. PHYSICAL EXAMINATION: VITAL SIGNS: Blood pressure 146/80, pulse 90, respiratory rate 20, and temperature 97.5. LUNGS: Clear. No rales. No rhonchi. CARDIOVASCULAR SYSTEM: S1 and S2 are regular. ABDOMEN: Soft. ASSESSMENT: 1. Poorly controlled diabetes. 2. Urinary tract infection with multidrug resistance. 3. Hypertension. 4. Chronic kidney disease, on hemodialysis. PLAN: Continue current medications. Monitor the patient. Slava Gilliam MD
[2018-10-26] MEDS: Meropenem 500 MG in Sodium Chloride 0.9% 100 ML IVPB SCH ×2 (09:00→19:02)
[2018-10-26] MEDS: (Novolin R) Insulin Human Regular 100 units/ml vial SC SCH ×5 (09:00→22:04)
[2018-10-26] MEDS: Oxycodone/Acetaminophen 5/325 mg Tab PO PRN ×2 (09:11→13:53)
--- NOTE | 2018-10-26 09:19 | CP.PCM.CON ---
History of Present Illness - History of Present Illness History of Present Illness: rology consultation Past Patient History - Past Medical History & Family History Past Medical History?: Yes - Past Social History Smoking Status: Never Smoked - CARDIAC Hx Cardiac Disorders: Yes Hx Hypercholesterolemia: Yes Hx Hypertension: Yes Hx Peripheral Edema: Yes (not at present) - PULMONARY Hx Respiratory Disorders: No - NEUROLOGICAL Hx Neurological Disorder: No - HEENT Hx HEENT Problems: No - RENAL Hx Chronic Kidney Disease: Yes Hx Dialysis: Yes Type of Dialysis Access: Left AV Fistula Date of Last Dialysis Treatment: 10/23/18 - ENDOCRINE/METABOLIC Hx Endocrine Disorders: Yes Hx Diabetes Mellitus Type 2: Yes - HEMATOLOGICAL/ONCOLOGICAL Hx Blood Disorders: Yes Hx Anemia: Yes - INTEGUMENTARY Hx Dermatological Problems: No - MUSCULOSKELETAL/RHEUMATOLOGICAL Hx Musculoskeletal Disorders: Yes Hx Fractures: Yes (RIGHT FEMUR) Other/Comment: left BKA - GASTROINTESTINAL Hx Gastrointestinal Disorders: Yes Other/Comment: HX: GASTRIC SLEEVE - GENITOURINARY/GYNECOLOGICAL Hx Genitourinary Disorders: Yes Hx Urinary Tract Infection: Yes - PSYCHIATRIC Hx Substance Use: No - SURGICAL HISTORY Hx Surgeries: Yes Hx Amputation: Yes (left BKA) Hx Gastric Bypass Surgery: Yes (gastric sleeve) Hx Tonsillectomy: Yes - ANESTHESIA Hx Anesthesia: Yes Hx Anesthesia Reactions: No Hx Malignant Hyperthermia: No Has any member of the family had a problem w/ anesthesia?: No Meds Allergies/Adverse Reactions: Allergies Allergy/AdvReac Type Severity Reaction Status Date / Time No Known Allergies Allergy Verified 10/23/18 10:26 - Medications Medications: Current Medications Calcitriol (Rocaltrol) 0.25 mcg PO DAILY [facility] Last Admin: 10/25/18 09:37 Dose: 0.25 mcg Calcium Acetate (Phoslo) 2,001 mg PO TIDCC [facility] Last Admin: 10/25/18 17:20 Dose: 2,001 mg Carvedilol (Coreg) 12.5 mg PO Q12 [facility] Last Admin: 10/25/18 21:50 Dose: 12.5 mg Dextrose (Dextrose 50% Inj) 0 ml IVP .STAT PRN; Protocol PRN Reason: Hypoglycemia Protocol Dextrose (Glutose 15) 0 gm PO .ONCE PRN; Protocol PRN Reason: Hypoglycemia Protocol Diphenhydramine HCl (Benadryl) 25 mg PO Q4H PRN PRN Reason: Itching / Pruritus Last Admin: 10/24/18 08:45 Dose: 25 mg Ferrous Sulfate (Feosol) 325 mg PO DAILY [facility] Last Admin: 10/25/18 09:38 Dose: 325 mg Gabapentin (Neurontin) 300 mg PO BID [facility] Last Admin: 10/25/18 17:20 Dose: 300 mg Glucagon (Glucagen Diagnostic Kit) 0 mg IM .STAT PRN; Protocol PRN Reason: Hypoglycemia Protocol Heparin Sodium (Porcine) (Heparin) 5,000 units SC Q8 [facility] Last Admin: 10/26/18 06:23 Dose: 5,000 units Meropenem 500 mg/ Sodium (Chloride) 100 mls @ 100 mls/hr IVPB Q12H [facility]; Protocol Last Admin: 10/25/18 20:58 Dose: 100 mls/hr Dextrose (Dextrose 5% In Water 1000 Ml) 1,000 mls @ 0 mls/hr IV .Q0M PRN; Pr otocol PRN Reason: Hypoglycemia Protocol Insulin Aspart (Novolog) 10 unit SC TID [facility] Last Admin: 10/24/18 13:23 Dose: 10 units Insulin Detemir (Levemir) 10 unit SC [facility] Last Admin: 10/25/18 22:19 Dose: Not Given Insulin Human Regular (Novolin R) 0 unit SC ACHS [facility]; Protocol Last Admin: 10/25/18 22:20 Dose: Not Given Losartan Potassium (Cozaar) 50 mg PO DAILY [facility] Last Admin: 10/25/18 09:38 Dose: 50 mg Morphine Sulfate (Morphine) 2 mg IVP Q4 PRN PRN Reason: Pain, severe (8-10) Last Admin: 10/26/18 06:24 Dose: 2 mg Ondansetron HCl (Zofran Inj) 4 mg IVP Q6H PRN PRN Reason: Nausea/Vomiting Last Admin: 10/25/18 17:20 Dose: 4 mg Oxycodone/Acetaminophen (Percocet 5/325 Mg Tab) 1 tab PO Q4H PRN PRN Reason: Pain, moderate (4-7) Stop: 10/26/18 18:02 Last Admin: 10/26/18 09:11 Dose: 1 tab Rosuvastatin Calcium (Crestor) 20 mg PO HS [facility] Last Admin: 10/25/18 21:50 Dose: 20 mg Sennosides (Senokot Tab) 17.2 mg PO DAILY PRN PRN Reason: Constipation Tramadol HCl (Ultram) 50 mg PO BID PRN PRN Reason: Pain, moderate (4-7) Last Admin: 10/23/18 17:56 Dose: 50 mg Results - Vital Signs Recent Vital Signs: Last Vital Signs Temp 99.7 F H 10/26/18 09:07 Pulse 92 H 10/26/18 09:07 Resp 20 10/26/18 09:07 BP 160/96 H 10/26/18 09:07 Pulse Ox 99 10/26/18 09:07 - Labs Result Diagrams: 10/23/18 12:31 10/23/18 12:31 Labs: Laboratory Results - last 24 hr 10/25/18 10/25/18 10/25/18 11:11 16:08 21:09 POC Glucose (mg/dL) 280 H 203 H 220 H 10/26/18 10/26/18 02:04 06:46 POC Glucose (mg/dL) 235 H 261 H Assessment & Plan - Assessment and Plan (Free Text) Assessment: IMP: UTI Urolithiasis Renal failure DM Obesity Lower ext amputation for gangrene Full note tbd Thank you YS - Date & Time Date: 10/26/18 Time: 08:50
[2018-10-26] MEDS ORDERED: Lidocaine 2% Jelly (Uro-Jet) ONE (09:25)
[2018-10-26] MEDS ORDERED: Iohexol 240 (50 ml) ONE (09:25)
[2018-10-26] MEDS ORDERED: Propofol 10 mg/ml Inj (20 ML) ONE (09:52)
--- NOTE | 2018-10-26 10:08 | PCM.SURG1 ---
Surgeon's Initial Post Op Note - Surgeon's Notes Surgeon: Isabel Zapata Cardiac Cath Rn: none Type of Anesthesia: IV Sedation Pre-Operative Diagnosis: urolithiasis. UTI Operative Findings: same Post-Operative Diagnosis: same Operation Performed: cysto, stent removal Specimen/Specimens Removed: urine Estimated Blood Loss: EBL {In ML}: 0 Blood Products Given: N/A Drains Used: No Drains Post-Op Condition: Good Date of Surgery/Procedure: 10/26/18 Time of Surgery/Procedure: 10:08
[2018-10-26] MEDS ORDERED: HYDROmorphone 0.5 mg/0.5 ml ISec IVP PRN (10:14)
--- NOTE | 2018-10-26 12:34 | CP.PCM.PN ---
Subjective - Date & Time of Evaluation Date of Evaluation: 10/26/18 Time of Evaluation: 12:34 - Subjective Subjective: AFEBRILE, NO NEW COMPLAINTS. S/P CYSTO AND STENT REMOVAL. ON IV ABX Objective - Vital Signs/Intake and Output Vital Signs (last 24 hours): Temp Pulse Resp BP Pulse Ox 98 F 86 15 128/77 100 10/26/18 10:30 10/26/18 10:30 10/26/18 10:30 10/26/18 10:30 10/26/18 10:30 Intake and Output: 10/26/18 10/26/18 06:59 18:59 Intake Total 480 100 Balance 480 100 - Medications Medications: Current Medications Calcitriol (Rocaltrol) 0.25 mcg PO DAILY [facility] Last Admin: 10/26/18 11:05 Dose: 0.25 mcg Calcium Acetate (Phoslo) 2,001 mg PO TIDCC [facility] Last Admin: 10/26/18 12:08 Dose: Not Given Carvedilol (Coreg) 12.5 mg PO Q12 [facility] Last Admin: 10/26/18 11:05 Dose: Not Given Dextrose (Dextrose 50% Inj) 0 ml IVP .STAT PRN; Protocol PRN Reason: Hypoglycemia Protocol Dextrose (Glutose 15) 0 gm PO .ONCE PRN; Protocol PRN Reason: Hypoglycemia Protocol Diphenhydramine HCl (Benadryl) 25 mg PO Q4H PRN PRN Reason: Itching / Pruritus Last Admin: 10/24/18 08:45 Dose: 25 mg Ferrous Sulfate (Feosol) 325 mg PO DAILY [facility] Last Admin: 10/26/18 11:05 Dose: 325 mg Gabapentin (Neurontin) 300 mg PO BID [facility] Last Admin: 10/26/18 11:05 Dose: 300 mg Glucagon (Glucagen Diagnostic Kit) 0 mg IM .STAT PRN; Protocol PRN Reason: Hypoglycemia Protocol Heparin Sodium (Porcine) (Heparin) 5,000 units SC Q8 [facility] Last Admin: 10/26/18 06:23 Dose: 5,000 units Meropenem 500 mg/ Sodium (Chloride) 100 mls @ 100 mls/hr IVPB Q12H [facility]; Protocol Last Admin: 10/26/18 09:00 Dose: Not Given Dextrose (Dextrose 5% In Water 1000 Ml) 1,000 mls @ 0 mls/hr IV .Q0M PRN; Protocol PRN Reason: Hypoglycemia Protocol Insulin Aspart (Novolog) 10 unit SC TID [facility] Last Admin: 10/24/18 13:23 Dose: 10 units Insulin Detemir (Levemir) 10 unit SC HS [facility] Last Admin: 10/25/18 22:19 Dose: Not Given Insulin Human Regular (Novolin R) 0 unit SC ACHS [facility]; Protocol Last Admin: 10/26/18 12:08 Dose: 6 units Losartan Potassium (Cozaar) 50 mg PO DAILY [facility] Last Admin: 10/25/18 09:38 Dose: 50 mg Morphine Sulfate (Morphine) 2 mg IVP Q4 PRN PRN Reason: Pain, severe (8-10) Last Admin: 10/26/18 11:01 Dose: 2 mg Ondansetron HCl (Zofran Inj) 4 mg IVP Q6H PRN PRN Reason: Nausea/Vomiting Last Admin: 10/26/18 12:08 Dose: 4 mg Oxycodone/Acetaminophen (Percocet 5/325 Mg Tab) 1 tab PO Q4H PRN PRN Reason: Pain, moderate (4-7) Stop: 10/26/18 18:02 Last Admin: 10/26/18 09:11 Dose: 1 tab Rosuvastatin Calcium (Crestor) 20 mg PO [facility] Last Admin: 10/25/18 21:50 Dose: 20 mg Sennosides (Senokot Tab) 17.2 mg PO DAILY PRN PRN Reason: Constipation Tramadol HCl (Ultram) 50 mg PO BID PRN PRN Reason: Pain, moderate (4-7) Last Admin: 10/23/18 17:56 Dose: 50 mg - Labs Labs: 10/23/18 12:31 10/23/18 12:31 - Constitutional Appears: No Acute Distress - Head Exam Head Exam: NORMAL INSPECTION - Eye Exam Eye Exam: EOMI - ENT Exam ENT Exam: Normal Oropharynx - Neck Exam Neck Exam: Normal Inspection - Respiratory Exam Respiratory Exam: Clear to Ausculation Bilateral - Cardiovascular Exam Cardiovascular Exam: REGULAR RHYTHM, +S1, +S2 - GI/Abdominal Exam GI & Abdominal Exam: Soft, Normal Bowel Sounds. absent: Tenderness - Extremities Exam Extremities Exam: absent: Calf Tenderness, Pedal Edema (LT. BKA) - Neurological Exam Neurological Exam: Awake, CN II-XII Intact, Oriented x3 - Psychiatric Exam Psychiatric exam: Normal Mood - Skin Skin Exam: Normal Color, Warm Assessment and Plan (1) UTI due to extended-spectrum beta lactamase (ESBL) producing Escherichia coli Status: Acute (2) ESRD (end stage renal disease) on dialysis Status: Acute (3) Diabetes Status: Acute - Assessment and Plan (Free Text) Plan: CONTINUE IV MERREM 500 MG EVERY 12 HOURLY 10/23/18. ON iv AMIKACIN 500 MG MWF STARTING 10/23/18 WITH TOTAL OF 3 DOSES. FOLLOW-UP CULTURES TO ADJUST ANTIBIOTICS. CONTACT PRECAUTIONS. PER .
--- NOTE | 2018-10-26 13:03 | CP.PCM.PN ---
Subjective - Date & Time of Evaluation Date of Evaluation: 10/26/18 Time of Evaluation: 13:01 - Subjective Subjective: RENAL s: seen and examined no n/v o: vs below gen: nad sclera: anicteric op: clear neck: supple cv: +S1+s2 no rub abd: soft nt/ nd lungs: cta-b/l ext: trace edema neuro: a+ox3 no focal defecit psych: nml affect skin: no rash imp: esrd / diabetic kidney disease/ anemia of renal disease/ hypertensive kidney disease/ UTI/ secondary hyperparathyroidism/ hyperphosphatemia plan: HD MWF continue bp meds well controlled on abx - dose for ESRD continue calcitriol continue binders p[lease check phos level Objective - Vital Signs/Intake and Output Vital Signs (last 24 hours): Temp Pulse Resp BP Pulse Ox 98 F 86 15 128/77 100 10/26/18 10:30 10/26/18 10:30 10/26/18 10:30 10/26/18 10:30 10/26/18 10:30 Intake and Output: 10/26/18 10/26/18 06:59 18:59 Intake Total 480 100 Balance 480 100 - Medications Medications: Current Medications Calcitriol (Rocaltrol) 0.25 mcg PO DAILY [facility] Last Admin: 10/26/18 11:05 Dose: 0.25 mcg Calcium Acetate (Phoslo) 2,001 mg PO TIDCC [facility] Last Admin: 10/26/18 12:08 Dose: Not Given Carvedilol (Coreg) 12.5 mg PO Q12 [facility] Last Admin: 10/26/18 11:05 Dose: Not Given Dextrose (Dextrose 50% Inj) 0 ml IVP .STAT PRN; Protocol PRN Reason: Hypoglycemia Protocol Dextrose (Glutose 15) 0 gm PO .ONCE PRN; Protocol PRN Reason: Hypoglycemia Protocol Diphenhydramine HCl (Benadryl) 25 mg PO Q4H PRN PRN Reason: Itching / Pruritus Last Admin: 10/24/18 08:45 Dose: 25 mg Ferrous Sulfate (Feosol) 325 mg PO DAILY [facility] Last Admin: 10/26/18 11:05 Dose: 325 mg Gabapentin (Neurontin) 300 mg PO BID [facility] Last Admin: 10/26/18 11:05 Dose: 300 mg Glucagon (Glucagen Diagnostic Kit) 0 mg IM .STAT PRN; Protocol PRN Reason: Hypoglycemia Protocol Heparin Sodium (Porcine) (Heparin) 5,000 units SC Q8 [facility] Last Admin: 10/26/18 06:23 Dose: 5,000 units Meropenem 500 mg/ Sodium (Chloride) 100 mls @ 100 mls/hr IVPB Q12H [facility]; Prot ocol Last Admin: 10/26/18 09:00 Dose: Not Given Dextrose (Dextrose 5% In Water 1000 Ml) 1,000 mls @ 0 mls/hr IV .Q0M PRN; Protocol PRN Reason: Hypoglycemia Protocol Insulin Aspart (Novolog) 10 unit SC TID [facility] Last Admin: 10/24/18 13:23 Dose: 10 units Insulin Detemir (Levemir) 10 unit SC HS [facility] Last Admin: 10/25/18 22:19 Dose: Not Given Insulin Human Regular (Novolin R) 0 unit SC ACHS [facility]; Protocol Last Admin: 10/26/18 12:08 Dose: 6 units Losartan Potassium (Cozaar) 50 mg PO DAILY [facility] Last Admin: 10/25/18 09:38 Dose: 50 mg Morphine Sulfate (Morphine) 2 mg IVP Q4 PRN PRN Reason: Pain, severe (8-10) Last Admin: 10/26/18 11:01 Dose: 2 mg Ondansetron HCl (Zofran Inj) 4 mg IVP Q6H PRN PRN Reason: Nausea/Vomiting Last Admin: 10/26/18 12:08 Dose: 4 mg Oxycodone/Acetaminophen (Percocet 5/325 Mg Tab) 1 tab PO Q4H PRN PRN Reason: Pain, moderate (4-7) Stop: 10/26/18 18:02 Last Admin: 10/26/18 09:11 Dose: 1 tab Rosuvastatin Calcium (Crestor) 20 mg PO HS [facility] Last Admin: 10/25/18 21:50 Dose: 20 mg Sennosides (Senokot Tab) 17.2 mg PO DAILY PRN PRN Reason: Constipation Tramadol HCl (Ultram) 50 mg PO BID PRN PRN Reason: Pain, moderate (4-7) Last Admin: 10/23/18 17:56 Dose: 50 mg - Labs Labs: 10/23/18 12:31 10/23/18 12:31
[2018-10-26 15:44] LABS: BASO % 0.5 % (0.0-2.0); EOS # 0.2 K/uL (0.0-0.7); EOS % 4.4 % (0.0-4.0); LYMPH # 0.9 K/uL (1.0-4.3); LYMPH % 18.6 % (20.0-40.0); MEAN CELL VOLUME 88.5 fL (81.0-99.0); MEAN CORPUSCULAR HEMOGLOBIN 27.9 pg (27.0-31.0); MEAN CORPUSCULAR HGB CONC 31.5 g/dL (33.0-37.0); MEAN PLATELET VOLUME 10.3 fL (7.2-11.7); MONO # 0.7 K/uL (0.0-0.8); MONO % 14.2 % (0.0-10.0); NEUT % 62.3 % (50.0-75.0); RBC 3.58 Mil/uL (3.80-5.20); RED CELL DISTRIBUTION WIDTH 16.3 % (11.5-14.5)
[2018-10-26 15:45] LABS: WHITE BLOOD COUNT 4.9 K/uL (4.8-10.8)
[2018-10-26 15:55] LABS: CALCIUM 8.4 mg/dl (8.6-10.4)
--- NOTE | 2018-10-26 16:00 | RAD ---
Date of service: 10/26/2018 PROCEDURE: Intraoperative Fluoroscopy. HISTORY: RT STENT REMOVAL FINDINGS: Fluoroscopic assistance was provided for right stent removal. Please refer to the operative report from Dr. LU NAGUABO. Total fluoroscopic time (continuous mode) utilized during the procedure 2.5 seconds. Dose report: DLP [id number] (mGy/m2)
[2018-10-26 16:16] LABS: HEPATITIS B SURFACE AG Negative (NEGATIVE)
[2018-10-26 16:21] LABS: HEPATITIS B CORE AB NEGATIVE (NEGATIVE)
[2018-10-26 16:34] LABS: HEPATITIS C ANTIBODY NEGATIVE (NEGATIVE)
[2018-10-26] MEDS: Insulin Detemir 100 units/ml Vial (Levemir) SC SCH (22:03)
--- NOTE | 2018-10-26 22:54 | CP.PCM.PN ---
Subjective - Subjective Subjective: dictated Objective - Vital Signs/Intake and Output Vital Signs (last 24 hours): Temp Pulse Resp BP Pulse Ox 97.9 F 85 18 128/84 99 10/26/18 18:48 10/26/18 18:48 10/26/18 18:48 10/26/18 22:03 10/26/18 18:48 Intake and Output: 10/26/18 10/27/18 18:59 06:59 Intake Total 100 400 Balance 100 400 - Medications Medications: Current Medications Calcitriol (Rocaltrol) 0.25 mcg PO DAILY [facility] Last Admin: 10/26/18 11:05 Dose: 0.25 mcg Calcium Acetate (Phoslo) 2,001 mg PO TIDCC [facility] Last Admin: 10/26/18 19:02 Dose: 2,001 mg Carvedilol (Coreg) 12.5 mg PO Q12 [facility] Last Admin: 10/26/18 22:03 Dose: 12.5 mg Dextrose (Dextrose 50% Inj) 0 ml IVP .STAT PRN; Protocol PRN Reason: Hypoglycemia Protocol Dextrose (Glutose 15) 0 gm PO .ONCE PRN; Protocol PRN Reason: Hypoglycemia Protocol Diphenhydramine HCl (Benadryl) 25 mg PO Q4H PRN PRN Reason: Itching / Pruritus Last Admin: 10/26/18 13:50 Dose: 25 mg Ferrous Sulfate (Feosol) 325 mg PO DAILY [facility] Last Admin: 10/26/18 11:05 Dose: 325 mg Gabapentin (Neurontin) 300 mg PO BID [facility] Last Admin: 10/26/18 19:02 Dose: 300 mg Glucagon (Glucagen Diagnostic Kit) 0 mg IM .STAT PRN; Protocol PRN Reason: Hypoglycemia Protocol Heparin Sodium (Porcine) (Heparin) 5,000 units SC Q8 [facility] Last Admin: 10/26/18 22:04 Dose: Not Given Meropenem 500 mg/ Sodium (Chloride) 100 mls @ 100 mls/hr IVPB Q12H [facility]; Protocol Last Admin: 10/26/18 19:02 Dose: 100 mls/hr Dextrose (Dextrose 5% In Water 1000 Ml) 1,000 mls @ 0 mls/hr IV .Q0M PRN; Protocol PRN Reason: Hypoglycemia Protocol Insulin Aspart (Novolog) 10 unit SC TID [facility] Last Admin: 10/24/18 13:23 Dose: 10 units Insulin Detemir (Levemir) 10 unit SC [facility] Last Admin: 10/26/18 22:03 Dose: 10 units Insulin Human Regular (Novolin R) 0 unit SC [facility]; Protocol Last Admin: 10/26/18 22:04 Dose: 3 units Losartan Potassium (Cozaar) 50 mg PO DAILY [facility] Last Admin: 10/26/18 11:05 Dose: Not Given Morphine Sulfate (Morphine) 2 mg IVP Q4 PRN PRN Reason: Pain, severe (8-10) Last Admin: 10/26/18 19:02 Dose: 2 mg Ondansetron HCl (Zofran Inj) 4 mg IVP Q6H PRN PRN Reason: Nausea/Vomiting Last Admin: 10/26/18 19:36 Dose: 4 mg Rosuvastatin Calcium (Crestor) 20 mg PO [facility] Last Admin: 10/26/18 22:03 Dose: 20 mg Sennosides (Senokot Tab) 17.2 mg PO DAILY PRN PRN Reason: Constipation Tramadol HCl (Ultram) 50 mg PO BID PRN PRN Reason: Pain, moderate (4-7) Last Admin: 10/23/18 17:56 Dose: 50 mg - Labs Labs: 10/26/18 15:29 10/26/18 15:29
[2018-10-27] MEDS: (Novolin R) Insulin Human Regular 100 units/ml vial SC SCH ×4 (08:50→21:09)
[2018-10-27] MEDS: Meropenem 500 MG in Sodium Chloride 0.9% 100 ML IVPB SCH ×2 (08:50→20:53)
[2018-10-27] MEDS: Insulin Detemir 100 units/ml Vial (Levemir) SC SCH (22:05)
--- NOTE | 2018-10-27 23:24 | CP.PCM.PN ---
Subjective - Subjective Subjective: dictated Objective - Vital Signs/Intake and Output Vital Signs (last 24 hours): Temp Pulse Resp BP Pulse Ox 98.2 F 82 18 148/87 97 10/27/18 15:00 10/27/18 15:00 10/27/18 15:00 10/27/18 22:04 10/27/18 15:00 Intake and Output: 10/27/18 10/28/18 18:59 06:59 Intake Total 500 Balance 500 - Medications Medications: Current Medications Calcitriol (Rocaltrol) 0.25 mcg PO DAILY [facility] Last Admin: 10/27/18 10:34 Dose: 0.25 mcg Calcium Acetate (Phoslo) 2,001 mg PO TIDCC [facility] Last Admin: 10/27/18 17:47 Dose: 2,001 mg Carvedilol (Coreg) 12.5 mg PO Q12 [facility] Last Admin: 10/27/18 22:04 Dose: 12.5 mg Dextrose (Dextrose 50% Inj) 0 ml IVP .STAT PRN; Protocol PRN Reason: Hypoglycemia Protocol Dextrose (Glutose 15) 0 gm PO .ONCE PRN; Protocol PRN Reason: Hypoglycemia Protocol Diphenhydramine HCl (Benadryl) 25 mg PO Q4H PRN PRN Reason: Itching / Pruritus Last Admin: 10/26/18 13:50 Dose: 25 mg Ferrous Sulfate (Feosol) 325 mg PO DAILY [facility] Last Admin: 10/27/18 10:35 Dose: 325 mg Gabapentin (Neurontin) 300 mg PO BID [facility] Last Admin: 10/27/18 17:47 Dose: 300 mg Glucagon (Glucagen Diagnostic Kit) 0 mg IM .STAT PRN; Protocol PRN Reason: Hypoglycemia Protocol Heparin Sodium (Porcine) (Heparin) 5,000 units SC Q8 [facility] Last Admin: 10/27/18 22:05 Dose: 5,000 units Meropenem 500 mg/ Sodium (Chloride) 100 mls @ 100 mls/hr IVPB Q12H [facility]; Protocol Last Admin: 10/27/18 20:53 Dose: 100 mls/hr Insulin Aspart (Novolog) 10 unit SC TID [facility] Last Admin: 10/24/18 13:23 Dose: 10 units Insulin Detemir (Levemir) 10 unit SC HS [facility] Last Admin: 10/27/18 22:05 Dose: 10 units Insulin Human Regular (Novolin R) 0 unit SC ACHS [facility]; Protocol Last Admin: 10/27/18 21:09 Dose: Not Given Losartan Potassium (Cozaar) 50 mg PO DAILY [facility] Last Admin: 10/27/18 10:35 Dose: 50 mg Morphine Sulfate (Morphine) 2 mg IVP Q4 PRN PRN Reason: Pain, severe (8-10) Last Admin: 10/27/18 18:28 Dose: 2 mg Ondansetron HCl (Zofran Inj) 4 mg IVP Q6H PRN PRN Reason: Nausea/Vomiting Last Admin: 10/27/18 18:28 Dose: 4 mg Rosuvastatin Calcium (Crestor) 20 mg PO [facility] Last Admin: 10/27/18 22:04 Dose: 20 mg Sennosides (Senokot Tab) 17.2 mg PO DAILY PRN PRN Reason: Constipation Last Admin: 10/27/18 10:35 Dose: 17.2 mg Tramadol HCl (Ultram) 50 mg PO BID PRN PRN Reason: Pain, moderate (4-7) Last Admin: 10/23/18 17:56 Dose: 50 mg - Labs Labs: 10/26/18 15:29 10/26/18 15:29
[2018-10-27] MEDS ORDERED: Insulin Detemir 100 units/ml Vial (Levemir) SC SCH (23:50)
[2018-10-27] MEDS ORDERED: (Novolog) Insulin Aspart, Recombinant 100 u/ml 10 ml vial SC SCH (23:50)
--- NOTE | 2018-10-28 05:42 | PN ---
DATE: 10/27/2018 SUBJECTIVE: The patient, Brianne, is status post OR. She is afebrile. PHYSICAL EXAMINATION: VITAL SIGNS: Blood pressure 115/71, pulse 85, respiratory rate 18, and temperature 97.9. LUNGS: Clear. CARDIOVASCULAR SYSTEM: S1 and S2, regular. ABDOMEN: Soft. ASSESSMENT: 1. Complicated urinary tract infection with Escherichia coli. The patient is on antibiotics, seen by Infectious Disease. 2. Chronic kidney disease, on hemodialysis. 3. Poorly controlled diabetes. 4. Hypertension. PLAN: Continue antibiotics. Monitor the patient. Slava Gilliam MD
--- NOTE | 2018-10-28 05:46 | PN ---
DATE: 10/27/2018 SUBJECTIVE: The patient is afebrile. No shortness of breath. No chest pain. PHYSICAL EXAMINATION: VITAL SIGNS: Blood pressure 148/87, pulse 82, respiratory rate 18, and temperature 98.2. LUNGS: Clear. CARDIOVASCULAR SYSTEM: S1 and S2, regular. ABDOMEN: Soft. ASSESSMENT: 1. Complicated urinary tract infection, status post stent placement and now removal with multidrug resistant urinary tract infection with Escherichia coli. 2. Chronic kidney disease, on hemodialysis. 3. Type 2 diabetes. 4. Hypertension. PLAN: Adjust insulin. Continue antibiotics. Follow up with ID. Monitor patient. Slava Gilliam MD
[2018-10-28] MEDS: Meropenem 500 MG in Sodium Chloride 0.9% 100 ML IVPB SCH (08:17)
[2018-10-28] MEDS: (Novolin R) Insulin Human Regular 100 units/ml vial SC SCH ×3 (08:18→18:40)
[2018-10-28] MEDS ORDERED: EPOETIN ALFA 4,000 UNIT/ML ML Dialysis IV SCH (10:00)
--- NOTE | 2018-10-28 13:00 | CP.PCM.PN ---
Subjective - Date & Time of Evaluation Date of Evaluation: 10/28/18 Time of Evaluation: 12:17 - Subjective Subjective: Nephrology Consultation Note Assessment: Stable ESBL UTI Diabetic chronic Kidney Disease (E11.22) Hypertensive Chronic Kidney Disease (I12.0) End stage renal disease (N18.6) dependence on hemodialysis (Z99.2) (MWF) via AVF Anemia (D64.9), Hyperphosphatemia (E83.39), Secondary Hyperparathyroidism (E21.1), HTN (I12.0) morbid obesity Plan: Will plan for HD today as ordered. Continue with Nephrovite 1 tab/day. PRBC as needed for anemia. on KAYLI with dialysis as last Hb 10 Continue with phos binders, last phos level: please check Continue with calcitriol. BP control with meds as ordered. Patient on RAAS tera as losartan Glycemic control, Dialysis consistent diet Further work up/management as per primary team Dose meds/antibiotics (if needed) for ESRD status. Avoid fleets enema/magnesium based laxatives. ID following Thanks for allowing me to participate in care of your patient. Will follow patient with you. Please call if any Qs Dr Reno Pineda Office: [phone] Subjective: Noted events overnight. Patients feels okay. Denies chest pain, palpitation, shortness of breath, leg swelling. All other negative. c/o low back pain Physical Examination: General Appearance: Comfortable, in no acute respiratory distress, co-operative . obese Vitals reviewed and noted as below Head; Atraumatic, normocephalic ENT: no ulcers no thrush. Tongue is midline. Oropharynx: no rash or ulcers. EYES: Pupils are equal, round and reactive to light accommodation. Eye muscles and extraocular movement intact. Sclera is anicteric. Neck; supple no lymphadenopathy, no thyromegaly or bruit Lungs: Normal respiratory rate/effort. Breath sounds bilateral equal and clear Heart: Normal rate. s1s2 normal. No rub or gallop. Extremities: no edema. No varicose veins. left BKA Neurological: Patient is alert, awake and oriented to person, place and time. No focal deficit. Strength bilateral appropriate and equal Skin: Warm and dry. Normal turgor. No rash. Palpitation: Normal elasticity for age Abdomen: Abdomen is soft. Bowel sounds +. There is no abdominal tenderness, no guarding/rigidity or organomegaly Psych: normal insight and normal affect/mood MSK: no joint tenderness or swelling. Digits and nails normal, no deformity : kidney or bladder not palpable Access: AVF Labs/imaging reviewed. Past medical history, past surgical history, family history, social history, allergy reviewed and noted as below Family Hx: no hx of CKD. Non contributory Objective - Vital Signs/Intake and Output Vital Signs (last 24 hours): Temp Pulse Resp BP Pulse Ox 98.0 F 69 20 138/71 97 10/28/18 07:54 10/28/18 09:36 10/28/18 07:54 10/28/18 09:36 10/28/18 07:54 Intake and Output: 10/28/18 10/28/18 06:59 18:59 Intake Total 740 Balance 740 - Medications Medications: Current Medications Calcitriol (Rocaltrol) 0.25 mcg PO DAILY [facility] Last Admin: 10/28/18 09:37 Dose: 0.25 mcg Calcium Acetate (Phoslo) 2,001 mg PO TIDCC [facility] Last Admin: 10/28/18 08:17 Dose: 2,001 mg Carvedilol (Coreg) 12.5 mg PO Q12 [facility] Last Admin: 10/28/18 09:36 Dose: Not Given Dextrose (Dextrose 50% Inj) 0 ml IVP .STAT PRN; Protocol PRN Reason: Hypoglycemia Protocol Dextrose (Glutose 15) 0 gm PO .ONCE PRN; Protocol PRN Reason: Hypoglycemia Protocol Diphenhydramine HCl (Benadryl) 25 mg PO Q4H PRN PRN Reason: Itching / Pruritus Last Admin: 10/28/18 02:24 Dose: 25 mg Epoetin Santhosh (Procrit) 4,000 unit IV [facility] Gabapentin (Neurontin) 300 mg PO BID [facility] Last Admin: 10/28/18 09:37 Dose: 300 mg Glucagon (Glucagen Diagnostic Kit) 0 mg IM .STAT PRN; Protocol PRN Reason: Hypoglycemia Protocol Heparin Sodium (Porcine) (Heparin) 5,000 units SC Q8 [facility] Last Admin: 10/28/18 05:04 Dose: 5,000 units Heparin Sodium (Porcine) (Heparin) 2,000 units IVP [facility] Meropenem 500 mg/ Sodium (Chloride) 100 mls @ 100 mls/hr IVPB Q12H [facility]; Protocol Last Admin: 10/28/18 08:17 Dose: 100 mls/hr Insulin Aspart (Novolog) 12 unit SC TID [facility] Insulin Detemir (Levemir) 14 unit SC HS [facility] Insulin Human Regular (Novolin R) 0 unit SC ACHS [facility]; Protocol Last Admin: 10/28/18 08:18 Dose: 2 units Losartan Potassium (Cozaar) 50 mg PO DAILY [facility] Last Admin: 10/28/18 09:37 Dose: Not Given Morphine Sulfate (Morphine) 2 mg IVP Q4 PRN PRN Reason: Pain, severe (8-10) Last Admin: 10/28/18 08:17 Dose: 2 mg Ondansetron HCl (Zofran Inj) 4 mg IVP Q6H PRN PRN Reason: Nausea/Vomiting Last Admin: 10/27/18 18:28 Dose: 4 mg Rosuvastatin Calcium (Crestor) 20 mg PO HS [facility] Last Admin: 10/27/18 22:04 Dose: 20 mg Sennosides (Senokot Tab) 17.2 mg PO DAILY PRN PRN Reason: Constipation Last Admin: 10/27/18 10:35 Dose: 17.2 mg Tramadol HCl (Ultram) 50 mg PO BID PRN PRN Reason: Pain, moderate (4-7) Last Admin: 10/23/18 17:56 Dose: 50 mg Vitamin B Complex/Vit C/Folic Acid (Nephro-Renzo) 1 tab PO 0800 [facility] - Labs Labs: 10/26/18 15:29 10/26/18 15:29
--- NOTE | 2018-10-28 14:03 | CP.PCM.PN ---
Subjective - Date & Time of Evaluation Date of Evaluation: 10/28/18 Time of Evaluation: 14:02 - Subjective Subjective: CASE DISCUSSED W ABBIE Chao REPEAT URINE CULTURE +VE ENTEROCOCCUS FEACIUM S - VANCOMYCIN LABS REVIEWED. CASE DISCUSSED W RN. PLAN DC IV MERREM. START IV VANCOMYCIN 1GM IVPB MWF X 3DOSES TOTAL. STARTING TODAY POS HD 10/28/17. Objective - Vital Signs/Intake and Output Vital Signs (last 24 hours): Temp Pulse Resp BP Pulse Ox 98.0 F 69 20 138/71 97 10/28/18 07:54 10/28/18 09:36 10/28/18 07:54 10/28/18 09:36 10/28/18 07:54 Intake and Output: 10/28/18 10/28/18 06:59 18:59 Intake Total 740 Balance 740 - Medications Medications: Current Medications Calcitriol (Rocaltrol) 0.25 mcg PO DAILY [facility] Last Admin: 10/28/18 09:37 Dose: 0.25 mcg Calcium Acetate (Phoslo) 2,001 mg PO TIDCC [facility] Last Admin: 10/28/18 08:17 Dose: 2,001 mg Carvedilol (Coreg) 12.5 mg PO Q12 [facility] Last Admin: 10/28/18 09:36 Dose: Not Given Dextrose (Dextrose 50% Inj) 0 ml IVP .STAT PRN; Protocol PRN Reason: Hypoglycemia Protocol Dextrose (Glutose 15) 0 gm PO .ONCE PRN; Protocol PRN Reason: Hypoglycemia Protocol Diphenhydramine HCl (Benadryl) 25 mg PO Q4H PRN PRN Reason: Itching / Pruritus Last Admin: 10/28/18 02:24 Dose: 25 mg Epoetin Santhosh (Procrit) 4,000 unit IV MWF [facility] Gabapentin (Neurontin) 300 mg PO BID [facility] Last Admin: 10/28/18 09:37 Dose: 300 mg Glucagon (Glucagen Diagnostic Kit) 0 mg IM .STAT PRN; Protocol PRN Reason: Hypoglycemia Protocol Heparin Sodium (Porcine) (Heparin) 5,000 units SC Q8 [facility] Last Admin: 10/28/18 05:04 Dose: 5,000 units Heparin Sodium (Porcine) (Heparin) 2,000 units IVP MWF [facility] Meropenem 500 mg/ Sodium (Chloride) 100 mls @ 100 mls/hr IVPB Q12H [facility]; Protocol Last Admin: 10/28/18 08:17 Dose: 100 mls/hr Insulin Aspart (Novolog) 12 unit SC TID [facility] Insulin Detemir (Levemir) 14 unit SC HS [facility] Insulin Human Regular (Novolin R) 0 unit SC ACHS [facility]; Protocol Last Admin: 10/28/18 12:30 Dose: 3 units Losartan Potassium (Cozaar) 50 mg PO DAILY [facility] Last Admin: 10/28/18 09:37 Dose: Not Given Morphine Sulfate (Morphine) 2 mg IVP Q4 PRN PRN Reason: Pain, severe (8-10) Last Admin: 10/28/18 08:17 Dose: 2 mg Ondansetron HCl (Zofran Inj) 4 mg IVP Q6H PRN PRN Reason: Nausea/Vomiting Last Admin: 10/27/18 18:28 Dose: 4 mg Rosuvastatin Calcium (Crestor) 20 mg PO HS [facility] Sennosides (Senokot Tab) 17.2 mg PO DAILY PRN PRN Reason: Constipation Last Admin: 10/27/18 10:35 Dose: 17.2 mg Tramadol HCl (Ultram) 50 mg PO BID PRN PRN Reason: Pain, moderate (4-7) Last Admin: 10/23/18 17:56 Dose: 50 mg Vitamin B Complex/Vit C/Folic Acid (Nephro-Renzo) 1 tab PO 0800 [facility] - Labs Labs: 10/26/18 15:29 10/26/18 15:29 - Constitutional Appears: No Acute Distress - Eye Exam Eye Exam: EOMI, PERRL - ENT Exam ENT Exam: Normal Oropharynx - Neck Exam Neck Exam: Normal Inspection - Respiratory Exam Respiratory Exam: Clear to Ausculation Bilateral, NORMAL BREATHING PATTERN - Cardiovascular Exam Cardiovascular Exam: REGULAR RHYTHM, +S1, +S2 - GI/Abdominal Exam GI & Abdominal Exam: Soft, Normal Bowel Sounds - Extremities Exam Extremities Exam: Normal Capillary Refill (LT BKA). absent: Calf Tenderness, Pedal Edema - Back Exam Back Exam: absent: CVA tenderness (L), CVA tenderness (R) - Neurological Exam Neurological Exam: Awake, CN II-XII Intact, Oriented x3 - Psychiatric Exam Psychiatric exam: Normal Mood - Skin Skin Exam: Normal Color, Warm Assessment and Plan (1) UTI due to extended-spectrum beta lactamase (ESBL) producing Escherichia coli Status: Acute (2) ESRD (end stage renal disease) on dialysis Status: Acute (3) Diabetes Status: Acute
[2018-10-28 14:44] VITALS: RESP 18
--- NOTE | 2018-10-28 16:18 | CP.PCM.PN ---
Subjective - Date & Time of Evaluation Date of Evaluation: 10/28/18 Time of Evaluation: 16:17 Objective - Vital Signs/Intake and Output Vital Signs (last 24 hours): Temp Pulse Resp BP Pulse Ox 98.1 F 85 18 127/81 99 10/28/18 14:20 10/28/18 14:20 10/28/18 14:20 10/28/18 15:20 10/28/18 14:20 Intake and Output: 10/28/18 10/28/18 06:59 18:59 Intake Total 740 Balance 740 - Medications Medications: Current Medications Calcitriol (Rocaltrol) 0.25 mcg PO DAILY [facility] Last Admin: 10/28/18 09:37 Dose: 0.25 mcg Calcium Acetate (Phoslo) 2,001 mg PO TIDCC [facility] Last Admin: 10/28/18 08:17 Dose: 2,001 mg Carvedilol (Coreg) 12.5 mg PO Q12 [facility] Last Admin: 10/28/18 09:36 Dose: Not Given Dextrose (Dextrose 50% Inj) 0 ml IVP .STAT PRN; Protocol PRN Reason: Hypoglycemia Protocol Dextrose (Glutose 15) 0 gm PO .ONCE PRN; Protocol PRN Reason: Hypoglycemia Protocol Diphenhydramine HCl (Benadryl) 25 mg PO Q4H PRN PRN Reason: Itching / Pruritus Last Admin: 10/28/18 02:24 Dose: 25 mg Epoetin Santhosh (Procrit) 4,000 unit IV MWF [facility] Last Admin: 10/28/18 14:35 Dose: 4,000 unit Gabapentin (Neurontin) 300 mg PO BID [facility] Last Admin: 10/28/18 09:37 Dose: 300 mg Glucagon (Glucagen Diagnostic Kit) 0 mg IM .STAT PRN; Protocol PRN Reason: Hypoglycemia Protocol Heparin Sodium (Porcine) (Heparin) 5,000 units SC Q8 [facility] Last Admin: 10/28/18 14:08 Dose: Not Given Heparin Sodium (Porcine) (Heparin) 2,000 units IVP MWF [facility] Last Admin: 10/28/18 14:34 Dose: 2,000 units Vancomycin/Sodium Chloride (Vancomycin 1 Gm/Ns 200 Ml) 1 gm in 200 mls @ 133 mls/hr IVPB MWF@1800 [facility]; Protocol Stop: 11/02/18 19:31 Insulin Aspart (Novolog) 12 unit SC TID [facility] Insulin Detemir (Levemir) 14 unit SC HS [facility] Insulin Human Regular (Novolin R) 0 unit SC ACHS [facility]; Protocol Last Admin: 10/28/18 12:30 Dose: 3 units Losartan Potassium (Cozaar) 50 mg PO DAILY [facility] Last Admin: 10/28/18 09:37 Dose: Not Given Morphine Sulfate (Morphine) 2 mg IVP Q4 PRN PRN Reason: Pain, severe (8-10) Last Admin: 10/28/18 08:17 Dose: 2 mg Ondansetron HCl (Zofran Inj) 4 mg IVP Q6H PRN PRN Reason: Nausea/Vomiting Last Admin: 10/27/18 18:28 Dose: 4 mg Rosuvastatin Calcium (Crestor) 20 mg PO HS [facility] Sennosides (Senokot Tab) 17.2 mg PO DAILY PRN PRN Reason: Constipation Last Admin: 10/27/18 10:35 Dose: 17.2 mg Tramadol HCl (Ultram) 50 mg PO BID PRN PRN Reason: Pain, moderate (4-7) Last Admin: 10/23/18 17:56 Dose: 50 mg Vitamin B Complex/Vit C/Folic Acid (Nephro-Renzo) 1 tab PO 0800 [facility] - Labs Labs: 10/26/18 15:29 10/26/18 15:29 Assessment and Plan - Assessment and Plan (Free Text) Assessment: FOLLOW UP WITH DR EUGENE IN HIS OFFICE-----CALL FOR APPOINTMENT FOLLOW UP WITH DR FRANCES IN HER OFFICE ----CALL FOR APPOINTMENT FOLLOW UP WITH DR LU IN HIS OFFICE CONTINUE HOME MEDICATION NEW PRESCRIPTION GIVEN VANCO 1 G IVPB MWF X 2 DOSE ACTIVITY TOLERATED HEMODILYSIS ORDERED CALL DR EUGENE OR GO THE EMERGENCY ROOM IF SYMPTOM RETURN OR WORSENING
[2018-10-28] MEDS ORDERED: Vancomycin 1 gm/NS 200 ml 1 GM/200 ML BAG IVPB SCH (18:00)
[2018-10-28 18:12] VITALS: BP 130/78; PULSE 81; TEMP 97.9; O2SAT 100
--- NOTE | 2018-10-28 23:03 | CP.PCM.DIS ---
Provider - Provider Date of Admission: 10/23/18 13:11 Attending physician: Slava Gilliam MD Consults: 10/23/18 13:14 Urology Consult Stat Comment: Consulting Provider: Naman Zapata Consulting Physician: Naman Zapata Reason for Consult: uti 10/23/18 18:02 Infectious Disease Consult Routine Comment: Consulting Provider: Deandre Torres Consulting Physician: Deandre Torres Reason for Consult: uti with drug resistence 10/23/18 22:16 Nephrology Consult Routine Comment: Consulting Provider: Paul Barboza Consulting Physician: Paul Barboza Reason for Consult: ckd Hospital Course - Lab Results Lab Results: Micro Results 10/23/18 12:31 Blood Blood Culture - Final NO GROWTH AFTER 5 DAYS 10/23/18 12:31 Blood Gram Stain - Final TEST NOT PERFORMED 10/23/18 12:31 Blood Blood Culture - Final NO GROWTH AFTER 5 DAYS 10/23/18 12:31 Blood Gram Stain - Final TEST NOT PERFORMED 10/26/18 12:51 Urine Urine Culture - Final Enterococcus Faecium 10/23/18 13:16 Urine Urine Culture - Final Escherichia Coli Most Recent Lab Values WBC 4.9 K/uL (4.8-10.8) D 10/26/18 15:29 RBC 3.58 Mil/uL (3.80-5.20) L 10/26/18 15:29 Hgb 10.0 g/dL (11.0-16.0) L 10/26/18 15:29 Hct 31.7 % (34.0-47.0) L 10/26/18 15:29 MCV 88.5 fL (81.0-99.0) 10/26/18 15:29 MCH 27.9 pg (27.0-31.0) 10/26/18 15:29 MCHC 31.5 g/dL (33.0-37.0) L 10/26/18 15:29 RDW 16.3 % (11.5-14.5) H 10/26/18 15:29 Plt Count 219 K/uL (130-400) 10/26/18 15:29 MPV 10.3 fL (7.2-11.7) 10/26/18 15:29 Neut % (Auto) 62.3 % (50.0-75.0) 10/26/18 15:29 Lymph % (Auto) 18.6 % (20.0-40.0) L 10/26/18 15:29 [place] % (Auto) 14.2 % (0.0-10.0) H 10/26/18 15:29 Eos % (Auto) 4.4 % (0.0-4.0) H 10/26/18 15:29 Baso % (Auto) 0.5 % (0.0-2.0) 10/26/18 15:29 Neut # (Auto) 3.0 K/uL (1.8-7.0) 10/26/18 15:29 Lymph # (Auto) 0.9 K/uL (1.0-4.3) L 10/26/18 15:29 [place] # (Auto) 0.7 K/uL (0.0-0.8) 10/26/18 15: Eos # (Auto) 0.2 K/uL (0.0-0.7) 10/26/18 15:29 Baso # (Auto) 0.0 K/uL (0.0-0.2) 10/26/18 15:29 Neutrophils % (Manual) 79 % (50-75) H 10/23/18 12:31 Band Neutrophils % 3 % (0-2) H 10/23/18 12:31 Lymphocytes % (Manual) 8 % (20-40) L 10/23/18 12:31 Monocytes % (Manual) 10 % (0-10) 10/23/18 12:31 Platelet Estimate Normal (NORMAL) 10/23/18 12:31 Anisocytosis (manual) Slight 10/23/18 12:31 [place] Cells Moderate 10/23/18 12:31 Sodium 132 mmol/L (132-148) 10/26/18 15:29 Potassium 5.7 mmol/L (3.6-5.2) H 10/26/18 15:29 Chloride 92 mmol/L (98-107) L 10/26/18 15:29 Carbon Dioxide 27 mmol/L (22-30) 10/26/18 15:29 Anion Gap 19 (10-20) 10/26/18 15:29 BUN 61 mg/dL (7-17) H 10/26/18 15:29 Creatinine 8.5 mg/dL (0.7-1.2) H* D 10/26/18 15:29 Est GFR ( Amer) 7 10/26/18 15:29 Est GFR (Non-Af Amer) 6 10/26/18 15:29 POC Glucose (mg/dL) 248 mg/dL (65-110) H 10/28/18 18:03 Random Glucose 307 mg/dL (65-105) H D 10/26/18 15:29 Calcium 8.4 mg/dl (8.6-10.4) L 10/26/18 15:29 Total Bilirubin 0.5 mg/dL (0.2-1.3) 10/23/18 12:31 AST 15 U/L (14-36) 10/23/18 12:31 ALT 12 U/L (9-52) 10/23/18 12:31 Alkaline Phosphatase 123 U/L (38-126) 10/23/18 12:31 Total Protein 8.3 g/dL (6.3-8.3) 10/23/18 12:31 Albumin 4.2 g/dL (3.5-5.0) 10/23/18 12:31 Globulin 4.1 gm/dL (2.2-3.9) H 10/23/18 12:31 Albumin/Globulin Ratio 1.0 (1.0-2.1) 10/23/18 12:31 Urine Color Yellow (YELLOW) 10/24/18 10:17 Urine Clarity Turbid (Clear) 10/24/18 10:17 Urine pH 5.0 (5.0-8.0) 10/24/18 10:17 Ur Specific Maud 1.010 (1.003-1.030) 10/24/18 10:17 Urine Protein 2+ mg/dL (NEGATIVE) H 10/24/18 10:17 Urine Glucose (UA) 3+ mg/dL (Normal) H 10/24/18 10:17 Urine Ketones Negative mg/dL (NEGATIVE) 10/24/18 10:17 Urine Blood 1+ (NEGATIVE) H 10/24/18 10:17 Urine Nitrate Negative (NEGATIVE) 10/24/18 10:17 Urine Bilirubin Negative (NEGATIVE) 10/24/18 10:17 Urine Urobilinogen Normal mg/dL (0.2-1.0) 10/24/18 10:17 Ur Leukocyte Esterase 3+ Katherine/uL (Negative) H 10/24/18 10:17 Urine WBC (Auto) 3434 /hpf (0-5) H 10/24/18 10:17 Urine RBC (Auto) 8 /hpf (0-3) H 10/24/18 10:17 Urine WBC Clumps (Auto) Many /hpf (NONE) H 10/24/18 10:17 Ur Squamous Epith Cells 8 /hpf (0-5) H 10/24/18 10:17 Urine Bacteria Mod (<OCC) H 10/24/18 10:17 Urine HCG, Qual Negative (NEGATIVE) 10/23/18 13:16 Hep Bs Antigen Negative (NEGATIVE) 10/26/18 15:29 Hep B Core IgM Ab Negative (NEGATIVE) 10/26/18 15:29 Hepatitis C Antibody Negative (NEGATIVE) 10/26/18 15:29 Discharge Exam - Head Exam Head Exam: NORMAL INSPECTION Discharge Plan - Discharge Medications Prescriptions: Vancomycin 1 gm/D5W 200 ml [Vancocin] 1 gm IVPB MWF #2 bag - Follow Up Plan Condition: FAIR Disposition: HOME/ ROUTINE Instructions: Diabetes Type 2 (DC), Vancomycin, Dialysis and Diet, Urinary Tract Infection in Women (DC) Additional Instructions: FOLLOW UP WITH DR GILLIAM IN HIS OFFICE-----CALL FOR APPOINTMENT FOLLOW UP WITH DR TORRES IN HER OFFICE ----CALL FOR APPOINTMENT FOLLOW UP WITH DR ZAPATA IN HIS OFFICE CONTINUE HOME MEDICATION NEW PRESCRIPTION GIVEN VANCO 1 G IVPB MWF X 2 DOSE ACTIVITY TOLERATED HEMODILYSIS ORDERED CALL DR GILLIAM OR GO THE EMERGENCY ROOM IF SYMPTOM RETURN OR WORSENING Referrals: Deandre Torres MD [Staff Provider] - Slava Gilliam MD [Staff Provider] - Naman Zapata MD [Staff Provider] -
--- NOTE | 2018-10-29 01:35 | CON ---
DATE: 10/26/2018 UROLOGY CONSULTATION REQUESTED BY: Slava Gilliam MD UROLOGY CONSULTATION FILLED BY: Marizol Zapata MD REASON FOR CONSULTATION: Urinary tract infection. Urolithiasis. CONSULTATION FOLLOWS: The patient is a 28-year-old female with urolithiasis. The patient is in otherwise fair to poor health. The patient has history of urolithiasis. She underwent previous cystoscopy and stent insertion. The patient underwent previous shockwave lithotripsy. Ms. Decker reports that she did not pass stones after the SWL. The patient underwent cystoscopy and right ureteroscopy with laser ureteral lithotripsy and stone basketing. With laser ureteral lithotripsy, she got the holmium laser ureteral lithotripsy on 10/19/2018. Till last week, the patient developed fever. She presented to the emergency room. The patient is now admitted for further evaluation regarding her urolithiasis and urinary tract infection. Of note, the patient had the stent insertion after ureteroscopy. A distal suture was attached to the stent to allow for its removal. The patient reports she is feeling better. She is having flank pain bilaterally, although less. The patient reports that she has had no further fever. Ms. Decker is with mother. She has significant peripheral vascular disease. 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 The patient has history of diabetes and hypertension and obesity. The patient has history of renal failure. She has been on hemodialysis three times a week. PHYSICAL EXAMINATION: GENRAL: The patient is a well-developed, well-nourished, overweight, young adult female. The patient is awake and alert. ABDOMEN: Soft, nontender. Protuberant. BACK: No CVA tenderness. IMPRESSION: Urolithiasis. Status post laser ureteral lithotripsy for renal stones. Urinary tract infection. The patient is currently being treated with antibiotic, namely meropenem. I attempted to remove the ureteral stent at the patient's bedside. I was unable to find the ureteral stent suture. Further examination with proper illumination was performed. However, the suture could not be located due to the patient's anatomy and the patient's discomfort. RECOMMENDATIONS AND PLAN: Continue antibiotic therapy. The patient will need stent removal. This may require cystoscopy. This may require simply placing the patient in a formal lithotomy position as well as providing analgesia as necessary. Further therapy to follow according to the patient's clinical course. Marizol Zapata MD cc: Slava Gilliam MD
--- NOTE | 2018-10-29 03:08 | DS ---
DISCHARGE DIAGNOSES: Complicated urinary tract infection due to stent placement; hypertension; end-stage renal disease, on hemodialysis; type 2 diabetes; nephrolithiasis. HISTORY OF PRESENT ILLNESS AND HOSPITAL COURSE: This is a 28-year-old female with a history of diabetes; hypertension; hyperlipidemia; end-stage renal disease, on hemodialysis. She developed urinary tract infection with multidrug resistant Escherichia coli and then Enterococcus faecium from stent which was placed earlier. The patient was evaluated, started on antibiotics. She became afebrile. She felt better. She is being discharged on oral antibiotics with outpatient followup. Condition upon discharge is stable. She was seen by Urology. Her stents were removed. She is feeling better. She is symptomatically better. She was seen by ID and cleared for discharge by ID. PHYSICAL EXAMINATION: VITAL SIGNS: BP 130/78, pulse 81, respiratory rate 18, and temperature 97.9. LABORATORY DATA: WBC 4.9, hemoglobin 10, hematocrit 31.7, platelets 219. Sodium 132, potassium 5.7, chloride 92, bicarb 27, BUN 61, and creatinine 8.5. Glucoses 196, 242, 361. The patient is feeling better. She is for discharge. CONDITION UPON DISCHARGE: Stable. Slava Gilliam MD
--- NOTE | 2018-10-29 03:55 | OP ---
PROCEDURE DATE: 10/26/2018 PREOPERATIVE DIAGNOSES: Urolithiasis. Urinary tract infection. POSTOPERATIVE DIAGNOSES: Urolithiasis. Urinary tract infection. PROCEDURES: Cystoscopy. Removal of right ureteral stent. PROCEDURE FOLLOWS: The patient had been on antibiotics. The patient was placed in lithotomy position. Attempt at identifying the suture and identifying the urethral meatus was performed. They suture could not be identified. Sedation was provided. The genitalia prepped and draped sterilely. A 22-Swedish cystoscope sheath was introduced into the urethral meatus. The meatus was identified with cystoscope sheath. The stent was identified within the bladder. The stent was grasped with rigid grasping forceps. The stent was removed through the cystoscope. The stent was removed intact. The long distal suture was identified attached to the stent. The suture was approximately 10-12 inches in length. The bladder was reinspected and confirmed the above findings. The bladder was then drained. Cystoscope and sheath were removed. The patient tolerated the procedure without complication. Marizol Zapata MD
[2018-10-29] MEDS ORDERED: Multivitamin Vitamin B Complex (Nephro-Vite) Tab PO SCH (08:00)
--- NOTE | 2018-10-30 00:05 | PCM.URO ---
Urology Progress Note - General General: Tolerating - Subjective Abdominal Pain: Yes (less) Flank Pain: Yes (less) Nausea: No Vomiting: No Voiding Well: Yes (small amounts) Dysuria: No Hematuria: No Stone Passed: No Dsypnea: No Chest Pain: No Fever & Chills: No - Objective Intake & Output: Intake & Output 10/29/18 10/29/18 10/30/18 06:59 18:59 06:59 Intake Total 200 Balance 200 Intake: Oral 200 Other: # Voids Urine, Voided 0 # Bowel Movements 0 - Physical Exam Abdominal Exam: Soft, Non-Tender, Non-Distended Back: No CVA Tenderness - Plan Additional Information: IMP: stable p cysto, stent removal. UTI. Urolithiasis. Renal failure. Rec/p: antibiotic rx. Monitor urine culture. Stone analysisi pending. Limited Hydration, acc to urine output. Hemodialysis in progress. Discussed w pt., who is eager for discharge. YS - Date & Time of Note Date: 10/28/18 Time: 14:45
== END 2018-10-28 21:29 | disposition home or self-care (01) | DRG 871 ==
LOC: C.ER 10:03 → C.9E 13:11 → C.5S 16:22
PROVIDERS: ADMIT Internal Medicine; ATTEND Internal Medicine
PROC: 0TP98DZ Removal of Intraluminal Device from Ureter, Via Natural or Artificial Opening Endoscopic (ICD-10-PCS; principal; 2018-10-23)
PROC: 3E0K8GC Introduction of Other Therapeutic Substance into Genitourinary Tract, Via Natural or Artificial Opening Endoscopic (ICD-10-PCS; 2018-10-23)
PROC: 0TP98DZ Removal of Intraluminal Device from Ureter, Via Natural or Artificial Opening Endoscopic (ICD-10-PCS; 2018-10-23)
DX: A41.9 Sepsis, unspecified organism (principal); N18.6 End stage renal disease; N39.0 Urinary tract infection, site not specified; N25.81 Secondary hyperparathyroidism of renal origin; I12.0 Hypertensive chronic kidney disease with stage 5 chronic kidney disease or end stage renal disease; E11.52 Type 2 diabetes mellitus with diabetic peripheral angiopathy with gangrene; B96.20 Unspecified Escherichia coli [E. coli] as the cause of diseases classified elsewhere; Z16.12 Extended spectrum beta lactamase (ESBL) resistance; N20.0 Calculus of kidney; E83.39 Other disorders of phosphorus metabolism; Z89.512 Acquired absence of left leg below knee; Z99.2 Dependence on renal dialysis; Z16.24 Resistance to multiple antibiotics; Z98.84 Bariatric surgery status; E11.22 Type 2 diabetes mellitus with diabetic chronic kidney disease; E66.9 Obesity, unspecified; E78.00 Pure hypercholesterolemia, unspecified; N18.9 Chronic kidney disease, unspecified; D63.1 Anemia in chronic kidney disease; Z68.30 Body mass index [BMI] 30.0-30.9, adult; Z96.641 Presence of right artificial hip joint; Z87.442 Personal history of urinary calculi; Z87.440 Personal history of urinary (tract) infections; E78.5 Hyperlipidemia, unspecified; E66.01 Morbid (severe) obesity due to excess calories; E11.65 Type 2 diabetes mellitus with hyperglycemia; D64.9 Anemia, unspecified